=== PATIENT | male | born 1960 | race Hispanic/Latino ===

== ENCOUNTER 2020-09-13 01:10 | Observation (INO) | payer OTHER ==
[2020-09-13 02:35] VITALS: BP 112/66
--- NOTE | 2020-09-13 03:00 | Emergency Department Report ---
ED Altered Mental Status HPI - General Chief Complaint: Altered Mental Status Stated Complaint: AMS Time Seen by Provider: 09/13/20 02:00 Source: EMS Mode of arrival: Stretcher Limitations: Altered Mental Status - History of Present Illness Initial Comments: 60-year-old male, history of seizure disorder, recent pacemaker placement (08/17/20), presents to ED with altered mental status. states patient had a seizure that was witnessed by their 2-year-old grandchild on 09/11/20 at around 8 PM. states ever since his seizure he has been exhibiting bizarre behavior. She states prior to the seizure, patient was his normal self. Not complaining of anything. No recent illness. denies patient having any fever or complaining of any headache, cough, shortness of breath. 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 reports patient has been doing strange things like putting an entire pack of unsmoked cigarettes in the ashtray, and unwrapping an entire roll of dental floss, and eating taco seasoning by the spoonful. states patient was having hallucinations in March of this year. She was told that it was due to sinus bradycardia. States patient has not had hallucinations since March. Patient has not received his COVID-19 vaccine. Patient is quite fidgety on the stretcher. Able to state his name and date of , but is confused and unable to answer any questions. When I asked patient what year it is, patient repeats, "What year is it?" and then does not answer the question. MD Complaint: altered mental status -: days(s) (1) Severity: moderate Consistency of Symptoms: constant Context: unknown - Related Data Allergies Allergy/AdvReac Type Severity Reaction Status Date / Time No Known Allergies Allergy Verified 09/13/20 04:16 ED Review of Systems ROS: Stated complaint: AMS Other details as noted in HPI Comment: Unobtainable due to pts medical conditions ED Past Medical Hx - Past Medical History Previous Medical History?: Yes Hx Seizures: Yes Additional medical history: Pacemaker - Surgical History Past Surgical History?: Yes Hx Pacemaker: Yes ED Physical Exam - General Limitations: Altered Mental Status General appearance: alert, in no apparent distress - Head Head exam: Present: atraumatic, normocephalic - Eye Eye exam: Present: normal appearance, EOMI - ENT ENT exam: Present: mucous membranes dry - Neck Neck exam: Present: normal inspection - Respiratory Respiratory exam: Present: normal lung sounds bilaterally. Absent: respiratory distress - Cardiovascular Cardiovascular Exam: Present: regular rate, normal rhythm - GI/Abdominal GI/Abdominal exam: Present: soft. Absent: distended, tenderness - Extremities Exam Extremities exam: Present: normal inspection - Neurological Exam Neurological exam: Present: alert, altered, CN II-XII intact, abnormal gait (Unsteady), other (follows commands, moves all 4 extremities). Absent: oriented X3 (oriented to self), motor sensory deficit - Psychiatric Psychiatric exam: Present: flat affect - Skin Skin exam: Present: warm, dry, intact, normal color ED Course Vital Signs 09/13/20 09/13/20 02:31 02:32 Temperature 98.2 F Pulse Rate 77 Respiratory 15 Rate Blood Pressure 112/66 [Left] O2 Sat by Pulse 100 100 Oximetry - Lab Data Result diagrams: 09/13/20 02:13 09/13/20 02:13 Lab Results 09/13/20 09/13/20 09/13/20 Range/Units 02:13 02:13 02:13 WBC 13.0 H (4.5-11.0) K/mm3 RBC 4.63 (3.65-5.03) M/mm3 Hgb 12.7 (11.8-15.2) gm/dl Hct 39.7 (35.5-45.6) % MCV 86 (84-94) fl MCH 27 L (28-32) pg MCHC 32 (32-34) % RDW 18.2 H (13.2-15.2) % Plt Count 302 (140-440) K/mm3 Lymph % (Auto) 22.4 (13.4-35.0) % [place] % (Auto) 10.0 H (0.0-7.3) % Eos % (Auto) 4.4 H (0.0-4.3) % Baso % (Auto) 0.7 (0.0-1.8) % Lymph # (Auto) 2.9 (1.2-5.4) K/mm3 [place] # (Auto) 1.3 H (0.0-0.8) K/mm3 Eos # (Auto) 0.6 H (0.0-0.4) K/mm3 Baso # (Auto) 0.1 (0.0-0.1) K/mm3 Seg Neutrophils % 62.5 (40.0-70.0) % Seg Neutrophils # 8.1 H (1.8-7.7) K/mm3 Sodium 141 (137-145) mmol/L Potassium 4.2 (3.6-5.0) mmol/L Chloride 102.6 (98-107) mmol/L Carbon Dioxide 29 (22-30) mmol/L Anion Gap 14 mmol/L BUN 18 (9-20) mg/dL Creatinine 1.0 (0.8-1.3) mg/dL Estimated GFR > 60 ml/min BUN/Creatinine Ratio 18 % Glucose 111 H (75-100) mg/dL Calcium 9.1 (8.4-10.2) mg/dL Total Bilirubin 0.20 (0.1-1.2) mg/dL Direct Bilirubin < 0.2 (0-0.2) mg/dL Indirect Bilirubin 0.0 mg/dL AST 12 (5-40) units/L ALT 12 (7-56) units/L Alkaline Phosphatase 142 H (35-129) units/L Total Creatine Kinase (55-170) units/L Total Protein 6.2 L (6.3-8.2) g/dL Albumin 3.9 (3.9-5) g/dL Albumin/Globulin Ratio 1.7 % Urine Color (Yellow) Urine Turbidity (Clear) Urine pH (5.0-7.0) Ur Specific Fountain (1.003-1.030) Urine Protein (Negative) mg/dL Urine Glucose (UA) (Negative) mg/dL Urine Ketones (Negative) mg/dL Urine Blood (Negative) Urine Nitrite (Negative) Urine Bilirubin (Negative) Urine Urobilinogen (<2.0) mg/dL Ur Leukocyte Esterase (Negative) Urine WBC (Auto) (0.0-6.0) /HPF Urine RBC (Auto) (0.0-6.0) /HPF Urine Bacteria (Auto) (Negative) /HPF Urine Mucus /HPF Urine Opiates Screen Urine Methadone Screen Ur Barbiturates Screen Ur Phencyclidine Scrn Ur Amphetamines Screen U Benzodiazepines Scrn Urine Cocaine Screen U Marijuana (THC) Screen Drugs of Abuse Note Plasma/Serum Alcohol < 0.01 (0-0.07) % 09/13/20 09/13/20 09/13/20 Range/Units 02:49 02:49 03:03 WBC (4.5-11.0) K/mm3 RBC (3.65-5.03) M/mm3 Hgb (11.8-15.2) gm/dl Hct (35.5-45.6) % MCV (84-94) fl MCH (28-32) pg MCHC (32-34) % RDW (13.2-15.2) % Plt Count (140-440) K/mm3 Lymph % (Auto) (13.4-35.0) % [place] % (Auto) (0.0-7.3) % Eos % (Auto) (0.0-4.3) % Baso % (Auto) (0.0-1.8) % Lymph # (Auto) (1.2-5.4) K/mm3 [place] # (Auto) (0.0-0.8) K/mm3 Eos # (Auto) (0.0-0.4) K/mm3 Baso # (Auto) (0.0-0.1) K/mm3 Seg Neutrophils % (40.0-70.0) % Seg Neutrophils # (1.8-7.7) K/mm3 Sodium (137-145) mmol/L Potassium (3.6-5.0) mmol/L Chloride (98-107) mmol/L Carbon Dioxide (22-30) mmol/L Anion Gap mmol/L BUN (9-20) mg/dL Creatinine (0.8-1.3) mg/dL Estimated GFR ml/min BUN/Creatinine Ratio % Glucose (75-100) mg/dL Calcium (8.4-10.2) mg/dL Total Bilirubin (0.1-1.2) mg/dL Direct Bilirubin (0-0.2) mg/dL Indirect Bilirubin mg/dL AST (5-40) units/L ALT (7-56) units/L Alkaline Phosphatase (35-129) units/L Total Creatine Kinase 33 L (55-170) units/L Total Protein (6.3-8.2) g/dL Albumin (3.9-5) g/dL Albumin/Globulin Ratio % Urine Color Yellow (Yellow) Urine Turbidity Clear (Clear) Urine pH 5.0 (5.0-7.0) Ur Specific [place] 1.029 (1.003-1.030) Urine Protein <15 mg/dl (Negative) mg/dL Urine Glucose (UA) Neg (Negative) mg/dL Urine Ketones Neg (Negative) mg/dL Urine Blood Neg (Negative) Urine Nitrite Neg (Negative) Urine Bilirubin Neg (Negative) Urine Urobilinogen < 2.0 (<2.0) mg/dL Ur Leukocyte Esterase Neg (Negative) Urine WBC (Auto) < 1.0 (0.0-6.0) /HPF Urine RBC (Auto) 4.0 (0.0-6.0) /HPF Urine Bacteria (Auto) 1+ (Negative) /HPF Urine Mucus Few /HPF Urine Opiates Screen Presumptive negative Urine Methadone Screen Presumptive negative Ur Barbiturates Screen Presumptive negative Ur Phencyclidine Scrn Presumptive negative Ur Amphetamines Screen Presumptive negative U Benzodiazepines Scrn Presumptive negative Urine Cocaine Screen Presumptive negative U Marijuana (THC) Screen Presumptive negative Drugs of Abuse Note Disclamer Plasma/Serum Alcohol (0-0.07) % - EKG Data EKG shows normal: axis, intervals Rate: normal Interpretation: no acute changes, other (Atrial sensed ventricular paced rhythm) - Radiology Data Radiology results: report reviewed, image reviewed - Medical Decision Making 60-year-old male presents to ED with altered mental status since having a seizure [address] head is unremarkable. Vital signs are normal. Patient has mild elevation in WBCs of 13, however remainder of labs are normal. UA is negative for UTI. Chest x-ray is normal. Patient given Keppra load here in the ED. No seizure activity today or while in the ED. Patient will be admitted to hospitalist, for further management. - Differential Diagnosis Intracranial abnormality, post ictal period, dementia Critical care attestation.: If time is entered above; I have spent that time in minutes in the direct care of this critically ill patient, excluding procedure time. ED Disposition Clinical Impression: Acute encephalopathy, Seizure disorder Disposition: OP ADMIT IP TO THIS HOSP Is pt being admited?: Yes Condition: Stable Time of Disposition: 04:32
[2020-09-13 03:20] LABS: Basophils # (Auto) 0.1 K/mm3 (0.0-0.1); Basophils % (Auto) 0.7 % (0.0-1.8); Eosinophils # (Auto) 0.6 K/mm3 (0.0-0.4); Eosinophils % (Auto) 4.4 % (0.0-4.3); Hematocrit 39.7 % (35.5-45.6); Hemoglobin 12.7 gm/dl (11.8-15.2); Lymphocytes # (Auto) 2.9 K/mm3 (1.2-5.4); Lymphocytes % (Auto) 22.4 % (13.4-35.0); Mean Corpuscular HGB Conc 32 % (32-34); Mean Corpuscular Volume 86 fl (84-94); Monocytes # (Auto) 1.3 K/mm3 (0.0-0.8); Platelet Count 302 K/mm3 (140-440); Red Blood Count 4.63 M/mm3 (3.65-5.03); Red Cell Distribution Width 18.2 % (13.2-15.2)
[2020-09-13 03:32] LABS: Amphetamine Screen,Urine PRESUMPTIVE NEGATIVE; Benzodiazepines Screen,Urine PRESUMPTIVE NEGATIVE; Cannabinoid Screen,Urine PRESUMPTIVE NEGATIVE; Cocaine Screen,Urine PRESUMPTIVE NEGATIVE; Methadone Screen,Urine PRESUMPTIVE NEGATIVE; Opiate Screen,Urine PRESUMPTIVE NEGATIVE
[2020-09-13 03:38] LABS: Alanine Aminotransferase 12 units/L (7-56); Albumin 3.9 g/dL (3.9-5); BUN/Creatinine Ratio 18; Blood Urea Nitrogen 18 mg/dL (9-20); Calcium 9.1 mg/dL (8.4-10.2); Hemolysis Index 6
[2020-09-13 03:51] LABS: Bilirubin,Direct < 0.2 mg/dL (0-0.2)
--- NOTE | 2020-09-13 03:54 | XRay Report ---
CHEST 1 VIEW 09/13/2020 2:24 AM INDICATION / CLINICAL INFORMATION: AMS. COMPARISON: None available. FINDINGS: SUPPORT DEVICES: None. HEART / MEDIASTINUM: Heart is normal size. Left-sided dual-lead cardiac pacemaker is present. LUNGS / PLEURA: No significant pulmonary or pleural abnormality. No pneumothorax. ADDITIONAL FINDINGS: No significant additional findings. IMPRESSION: 1. No acute findings. Signer Name: Aixa Sanchez MD Signed: 09/13/2020 3:49 AM Workstation Name: [email or web address]
[2020-09-13 03:57] LABS: Bacteria,Urine 1+ /HPF (Negative); Bilirubin,Urine NEG (Negative); Blood,Urine NEG (Negative); Color,Urine Yellow (Yellow); Mucus,Urine FEW /HPF; Protein,Urine <15 mg/dL mg/dL (Negative); Urobilinogen,Urine < 2.0 mg/dL (<2.0); WBC,Urine < 1.0 /HPF (0.0-6.0)
--- NOTE | 2020-09-13 04:05 | Cat Scan Report ---
CT HEAD WITHOUT CONTRAST INDICATION / CLINICAL INFORMATION: AMS following seizure 1 day ago. TECHNIQUE: All CT scans at this location are performed using CT dose reduction for ALARA by means of automated exposure control. COMPARISON: None available. FINDINGS: Study is degraded by moderate patient motion artifact despite repeated attempts. HEMORRHAGE: None. EXTRA-AXIAL SPACES: Normal in size and morphology for the patient's age. VENTRICULAR SYSTEM: Normal in size and morphology for the patient's age. CEREBRAL PARENCHYMA: No significant abnormality. No acute territorial infarct. MIDLINE SHIFT / HERNIATION: None. CEREBELLUM / BRAINSTEM: No significant abnormality. ORBITS: Normal as visualized. SOFT TISSUES: No significant abnormality. SKULL: No significant abnormality. PARANASAL SINUSES / MASTOID AIR CELLS: Normal as visualized. ADDITIONAL FINDINGS: None. IMPRESSION: 1. No acute abnormality on this study limited by patient motion artifact. Signer Name: Aixa Sanchez MD Signed: 09/13/2020 4:01 AM Workstation Name: [id number]
[2020-09-13] MEDS ORDERED: SODIUM CHLORIDE 0.9% 1000 ML 1,000 ML IV ONE (04:13)
[2020-09-13] MEDS ORDERED: levETIRAcetam 1000 MG/NS 0.75% 1,000 MG/100 ML BAG IV ONE (04:13)
--- NOTE | 2020-09-13 05:14 | History and Physical Report ---
History of Present Illness Date of examination: 09/13/20 Date of admission: 09/13/20 04:32 Chief complaint: Altered mental status History of present illness: This is a 60-year-old male who was brought to the ED by his . Per ED note, patients brought patient and she reported that patient has been confused and disoriented with decreased behavior after he had a seizure on 09/11/2020. Patient has a history of seizure disorder and presently had pacemaker placement 08/17/20. On assessment, patient is alert oriented but confused, was unable to get any pertinent information from patient due to confusion. When asked why did he come to the Hospital, patient was not able to explain where he is and why he was brought to the hospital. Checks x-ray and CT of the head are negative for acute finding. Will order MRI of the brain. I reviewed patient medical record and lab values, patient has mild elevation of WBC with no evidence of sepsis. Blood culture ordered. Inpatient psych and neurologist consulted. Past History Past Medical History: seizures, other (Altered mental status) Past Surgical History: Other (Placement of pacemaker) Social history: no significant social history Medications and Allergies Allergies Allergy/AdvReac Type Severity Reaction Status Date / Time No Known Allergies Allergy Verified 09/13/20 04:16 Active Meds: Active Medications Sodium Chloride (Nacl 0.9% 1000 Ml) 1,000 mls @ 999 mls/hr IV BOLUS ONE Stop: 09/13/20 05:13 Review of Systems Constitutional: other (Confused) Ears, nose, mouth and throat: no epistaxis, no bleeding gums Gastrointestinal: no BRBPR, no melena Rectal: no hemorrhoids, no discharge Musculoskeletal: other (Denies any discomfort) Integumentary: no rash, no pruritis Neurological: confusion (Patient is very confused patient is viable and unable to answer recent appropriately. When asked how are you doing he said I am fine but appears very altered), sensory deficit Psychiatric: memory loss (The patient ED record patient has been altered after he had a seizure), disorientation, confusion Hematologic/Lymphatic: no easy bruising, no easy bleeding Allergic/Immunologic: no urticaria, no allergic rhinitis Exam - Constitutional Vitals: Temp Pulse Resp BP Pulse Ox 98.2 F 77 15 112/66 100 09/13/20 02:31 09/13/20 02:31 09/13/20 02:31 09/13/20 02:31 09/13/20 02:32 General appearance: Present: no acute distress, well-nourished - EENT Eyes: Present: PERRL ENT: hearing intact, clear oral mucosa - Neck Neck: Present: supple, normal ROM - Respiratory Respiratory effort: normal Respiratory: bilateral: CTA - Cardiovascular Heart Sounds: Present: S1 & S2. Absent: rub, click - Extremities Extremities: pulses symmetrical, No edema Peripheral Pulses: within normal limits - Abdominal General gastrointestinal: Present: soft, non-tender, non-distended, normal bowel sounds Male genitourinary: Present: normal - Integumentary Integumentary: Present: clear, warm, dry - Musculoskeletal Musculoskeletal: gait normal, strength equal bilaterally - Psychiatric Psychiatric: memory intact, cooperative, other (Patient is confused following his seizure) - Neurologic Neurologic: CNII-XII intact, moves all extremities - Allied Health Allied health notes reviewed: nursing Results - Labs CBC & Chem 7: 09/13/20 02:13 09/13/20 02:13 Labs: Abnormal lab results 09/13/20 09/13/20 09/13/20 Range/Units 02:13 02:13 03:03 WBC 13.0 H (4.5-11.0) K/mm3 MCH 27 L (28-32) pg RDW 18.2 H (13.2-15.2) % [place] % (Auto) 10.0 H (0.0-7.3) % Eos % (Auto) 4.4 H (0.0-4.3) % [place] # (Auto) 1.3 H (0.0-0.8) K/mm3 Eos # (Auto) 0.6 H (0.0-0.4) K/mm3 Seg Neutrophils # 8.1 H (1.8-7.7) K/mm3 Glucose 111 H (75-100) mg/dL Alkaline Phosphatase 142 H (35-129) units/L Total Creatine Kinase 33 L (55-170) units/L Total Protein 6.2 L (6.3-8.2) g/dL Assessment and Plan - Patient Problems (1) Acute encephalopathy Current Visit: Yes Status: Acute Plan to address problem: Questionable causeinfection CT of the head no acute finding. Chest x-ray also done results within normal limits Safety and fall precaution at all time MRI of the brain Neuro consultfollow-up with recommendation (2) Seizure disorder Current Visit: Yes Status: Acute Plan to address problem: Seizure and safety precaution Patient recently had a seizuresince then patient has altered mental status We will consult inpatient psych start patient on home antiseizure meds (3) Leukocytosis (leucocytosis) Current Visit: Yes Status: Acute Plan to address problem: Unknown causeinfection/reactive Patient has no evidence sign of sepsis Monitor WBC and blood culture Urinalysis showed no sign of UTI (4) DVT prophylaxis Current Visit: Yes Status: Acute Plan to address problem: Lovenox subcutaneous
[2020-09-13] MEDS ORDERED: SENNOSIDES 8.6 MG TAB PO PRN (05:25)
[2020-09-13] MEDS ORDERED: NALOXONE 0.4 MG/1 ML INJ IV PRN (05:25)
[2020-09-13] MEDS ORDERED: ONDANSETRON 4 MG/2 ML INJ IV PRN (05:25)
[2020-09-13] MEDS ORDERED: MAGNESIUM HYDROXIDE (MOM) ORAL LIQD UDC PO PRN (05:25)
[2020-09-13] MEDS ORDERED: HYDROcodone/ACETAMINOPHEN 5-325 MG TAB PO PRN (05:25)
[2020-09-13] MEDS ORDERED: ACETAMINOPHEN 325 MG TAB PO PRN (05:25)
[2020-09-13] MEDS ORDERED: IBUPROFEN 600 MG TAB PO PRN (05:25)
[2020-09-13] MEDS ORDERED: ALUM-MAG HYDROXIDE-SIMETHICONE 200-200-20MG/5ML ORAL LIQD 30 ML PO PRN (05:25)
[2020-09-13] MEDS ORDERED: ALBUTEROL 2.5 MG/3 ML NEBU IH PRN (05:25)
[2020-09-13] MEDS ORDERED: SODIUM CHLORIDE 0.9% 1000 ML 1,000 ML IV SCH (05:30)
[2020-09-13] MEDS ORDERED: LORazepam 2 MG/ML VIAL IV PRN (05:48)
[2020-09-13] MEDS ORDERED: FAMOTIDINE 20 MG/2 ML INJ IV SCH (10:00)
[2020-09-13] MEDS ORDERED: ENOXAPARIN 40 MG/0.4 ML INJ SUB-Q SCH (10:00)
--- NOTE | 2020-09-13 10:37 | Consultation ---
History of Present Illness - Reason for Consult Consult date: 09/13/20 Reason for consult: MHE - History of Present Psychiatric Illness Per ER Note: 60-year-old male, history of seizure disorder, recent pacemaker placement (08/17/20), presents to ED with altered mental status. states patient had a seizure that was witnessed by their 2-year-old grandchild on 09/11/20 at around 8 PM. states ever since his seizure he has been exhibiting bizarre behavior. She states prior to the seizure, patient was his normal self. Not complaining of anything. No recent illness. denies patient having any fever or complaining of any headache, cough, shortness of breath. 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 reports patient has been doing strange things like putting an entire pack of unsmoked cigarettes in the ashtray, and unwrapping an entire roll of dental floss, and eating taco seasoning by the spoonful. states patient was having hallucinations in Mar ruary of this year. She was told that it was due to sinus bradycardia. States patient has not had hallucinations since March. Patient has not received his COVID-19 vaccine. Patient is quite fidgety on the stretcher. Able to state his name and date of , but is confused and unable to answer any questions. When I asked patient what year it is, patient repeats, "What year is it?" and then does not answer the question. Omid Red is 60y/o male patient whom I evaluated today. During my evaluation the patient is calm and cooperative. He is quiet and made poor eye contact. He is a/o x 2. The patient was able to tell me he's been to his for 13years. He says he has three children. The patient says overall he is pleased with his life when asked. He says he doesn't work. He says he was brought here by his for chest pain, although it a different reason is documented. He denies any SI/HI or any past attempt. When asking the patient was there anything he wanted to talk about he states "I'm talking to you." He also denies being on any psych medications. The patient denies any illicit drug use. He also denies any hallucinations of any kind. I spoke to the patient's spouse, Irena Red to obtain insight into the patient's history and reason for visit. She confirms that she and the patient have been around that time. She states the patient does have three biological children, plus one extra with her daughter. She says the patient has seen a psychiatrist "many years ago" but she could not recall what it actually was. She says the patient has never had a suicide attempt as far as she knew or on any psychiatric medications. She also denies any history of illicit drug use or chronic ETOH use. Mrs. Red says the patient is an overall funny man, and easy to get along with. She says most of his behavior started after he had a seizure. She is concerned that something medically is going on with the patient and asked if he had a head CT. 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 Access to guns/weapons: Denies Education: History of Abuse: none reported Legal History: none reported REVIEW OF SYSTEMS Constitutional: Negative for weight loss ENT: Negative for stridor Respiratory: Negative for cough or hemoptysis All other systems reviewed and are negative MENTAL STATUS EXAMINATION General Appearance and Behavior: Age appropriate, good hygiene, wearing appropriate clothes, awake, withdrawn, poor eye contact Cooperation: Participating/engaged Psychomotor Behavior: Tremors Mood: okay Affect and affective range: congruent with mood Thought Process: circumstantial Thought Content: None Speech: Normal volume, Regular rate and rhythm, Suicidal Ideation: Denies Homicidal Ideation: Denies Hallucinations: Denies Delusions: None elicited Impulse Control: impaired Insight and Judgment: limited insight and judgment, Memory: Limited Attention: Limited Orientation: Alert, oriented x 2 Assessment and Plan (1)Altered Mental Status Current Visit: Yes Status: Acute Treatment Plan It appears that the patient could possibly have an underlying medical condition. Will not start any medications until after CT or MRI of brain are done and resulted to r/o underlying conditions of the brain. Sitter: Defer to primary Medical: Per primary Disposition: Do not recommend acute psychiatric inpatient treatment at this time. If the patient is admitted for medical reasons will follow him on the floor for continued psych assessment. Thanks. Case staffed with Dr. Coats. Medications and Allergies Allergies Allergy/AdvReac Type Severity Reaction Status Date / Time No Known Allergies Allergy Verified 09/13/20 04:16 Active Meds: Active Medications Acetaminophen (Acetaminophen 325 Mg Tab) 650 mg PO Q4H PRN PRN Reason: Pain MILD(1-3)/Fever >100.5/BELLE Hydrocodone Bitart/Acetaminophen (Hydrocodone/Acetaminophen 5-325 Mg Tab) 2 each PO Q6H PRN PRN Reason: Pain, Moderate (4-6) Al Hydrox/Mg Hydrox/Simethicone (Alum-Mag Hydroxide-Simethicone [phone]/5ml Oral Liqd 30 Ml) 30 ml PO Q4H PRN PRN Reason: Indigestion Albuterol (Albuterol 2.5 Mg/3 Ml Nebu) 2.5 mg IH Q4HRT PRN PRN Reason: Shortness Of Breath Enoxaparin Sodium (Enoxaparin 40 Mg/0.4 Ml Inj) 40 mg SUB-Q QDAY [facility] Last Admin: 09/13/20 10:29 Dose: Not Given Documented by: Famotidine (Famotidine 20 Mg/2 Ml Inj) 20 mg IV BID [facility] Last Admin: 09/13/20 10:29 Dose: Not Given Documented by: Levetiracetam 500 mg/ Dextrose 105 mls @ 400 mls/hr IV Q12H JAUN Sodium Chloride (Nacl 0.9% 1000 Ml) 1,000 mls @ 75 mls/hr IV DIRECT [facility] Ibuprofen (Ibuprofen 600 Mg Tab) 600 mg PO Q6H PRN PRN Reason: Pain, Mild (1-3) Lorazepam (Lorazepam 2 Mg/Ml Vial) 2 mg IV Q1H PRN PRN Reason: Seizures Magnesium Hydroxide (Magnesium Hydroxide (Mom) Oral Liqd Udc) 30 ml PO Q4H PRN PRN Reason: Constipation Naloxone HCl (Naloxone 0.4 Mg/1 Ml Inj) 0.1 mg IV Q2MIN PRN PRN Reason: Res Rate </= 8 or 02 SAT < 92% Ondansetron HCl (Ondansetron 4 Mg/2 Ml Inj) 4 mg IV Q8H PRN PRN Reason: Nausea And Vomiting Senna (Sennosides 8.6 Mg Tab) 8.6 mg PO Q12HR PRN PRN Reason: Constipation Sodium Chloride (Sodium Chloride 0.9% 10 Ml Flush Syringe) 10 ml IV BID JAUN Last Admin: 09/13/20 10:29 Dose: Not Given Documented by: Sodium Chloride (Sodium Chloride 0.9% 10 Ml Flush Syringe) 10 ml IV PRN PRN PRN Reason: LINE FLUSH Mental Status Exam - Vital signs Last Vital Signs Temp 98.2 F 09/13/20 02:31 Pulse 77 09/13/20 02:31 Resp 15 09/13/20 02:31 BP 112/66 09/13/20 02:31 Pulse Ox 100 09/13/20 02:32 Results Result Diagrams: 09/13/20 02:13 09/13/20 02:13 Abnormal lab results 09/13/20 09/13/20 09/13/20 Range/Units 02:13 02:13 03:03 WBC 13.0 H (4.5-11.0) K/mm3 MCH 27 L (28-32) pg RDW 18.2 H (13.2-15.2) % [place] % (Auto) 10.0 H (0.0-7.3) % Eos % (Auto) 4.4 H (0.0-4.3) % [place] # (Auto) 1.3 H (0.0-0.8) K/mm3 Eos # (Auto) 0.6 H (0.0-0.4) K/mm3 Seg Neutrophils # 8.1 H (1.8-7.7) K/mm3 Glucose 111 H (75-100) mg/dL Alkaline Phosphatase 142 H (35-129) units/L Total Creatine Kinase 33 L (55-170) units/L Total Protein 6.2 L (6.3-8.2) g/dL All other labs normal.
--- NOTE | 2020-09-13 11:34 | Event Note ---
Date: 09/13/20 Patient with altered mental status. CT head neg. MRI Brain ordered. Spoke with spouse. She tells me he had seizures on 2 days ago. Was on Keppra at home for seizures. I have seen and examined him. Has pacemeker done by Lanre Kern, [facility]
[2020-09-13] MEDS ORDERED: HALOPERIDOL LACTATE 5 MG/1 ML INJ IM PRN (15:11)
[2020-09-13] MEDS ORDERED: levETIRAcetam 1,000 MG in DEXTROSE 5% IN WATER 100 ML IV SCH (17:00)
[2020-09-13] MEDS ORDERED: levETIRAcetam 500 MG in DEXTROSE 5% IN WATER 100 ML IV SCH (18:00)
--- NOTE | 2020-09-14 09:41 | Discharge Summary ---
Providers - Providers Date of Admission: 09/13/20 04:32 Date of discharge: 09/13/20 Attending physician: CELSO AMBROSIO 09/13/20 Consult to Case Management [CONS] Routine Services Needed at Discharge: Maid Housekeeper Notified:: foster care case manager 09/13/20 05:23 psychiatry consult [Consult to Mental Health] [CONS] Stat Reason For Exam: Altered mental status 09/13/20 05:33 Consult to Physician [CONS] Routine Comment: Consulting Provider: DILLON RODRIGUEZ Physician Instructions: Reason For Exam: Altered mental status Primary care physician: TAFE LECTURER Hospitalization Condition: Fair Hospital course: This is a 60-year-old male who was brought to the ED by his . Per ED note, patients brought patient and she reported that patient has been confused and disoriented with decreased behavior after he had a seizure on 09/11/2020. Patient has a history of seizure disorder and presently had pacemaker placement 08/17/20. On assessment, patient is alert oriented but confused, was unable to get any pertinent information from patient due to confusion. When asked why did he come to the Hospital, patient was not able to explain where he is and why he was brought to the hospital. Checks x-ray and CT of the head are negative for acute finding. Inpatient psych and neurologist consulted. He was admitted, seen by Psych who stated he did not need involuntary hold. Neurologist was consulted for seizures. However patient signed out against medical advice and left hospital on 09/13/20. Disposition: 07 LEFT AGAINST MEDICAL ADVICE Final Discharge Diagnosis (Prints w/discharge instructions): 1.Seizure disorder. 2.Acute encephalopathy - Discharge Diagnoses (1) Acute encephalopathy Status: Acute (2) Leukocytosis (leucocytosis) Status: Acute (3) Seizure disorder Status: Acute Core Measure Documentation - Palliative Care Palliative Care/ Comfort Measures: Not Applicable - Core Measures Any of the following diagnoses?: none Exam - Constitutional Vitals: Temp Pulse Resp BP Pulse Ox 98.2 F 77 19 112/66 97 09/13/20 02:31 09/13/20 02:31 09/13/20 11:49 09/13/20 02:09/13/20 11:49 Plan Follow up with: PRIMARY MD EVIE [Primary Care Provider] - 3-5 Days Forms: AMA Form
--- NOTE | 2020-09-15 10:37 | Electrocardiograph Report ---
[facility] Test Date: 2020-09-13 Test Time: 05:03:37 Pat Name: CRIS GUZMAN Department: Room: A470 1 Gender: M Rn Case Management: JOSE : 1960 Requested By: MALENA REYNOLDS Order Number: [id number] Reading MD: Sergio Benito Measurements Intervals [place] Rate: 75 P: 71 MI: 179 QRS: 259 QRSD: 128 T: 75 QT: 442 QTc: 493 Interpretive Statements Atrial-sensed ventricular-paced rhythm No previous ECG available for comparison Electronically Signed On 09-15-2020 10:37:04 EDT by Sergio Benito
== END 2020-09-13 15:00 | disposition left against medical advice (07) ==
LOC: ED 01:10 → 4A 04:32
PROVIDERS: ADMIT Hospitalist; ATTEND Internal Medicine
DX: G93.40 Encephalopathy, unspecified (principal); G40.909 Epilepsy, unspecified, not intractable, without status epilepticus; D72.829 Elevated white blood cell count, unspecified; R41.82 Altered mental status, unspecified; Z79.899 Other long term (current) drug therapy
CPT/HCPCS: 36415; 70450; 71045; 80048; 80076; 80307; 81001; 82550; 85025; 93005; 96365; 99285; G0378; J1953; J7030; 80320; G0480

== ENCOUNTER 2021-09-09 15:45 | Inpatient (IN) | payer SELFPAY ==
[2021-09-09] MEDS: LORazepam 2 MG/ML VIAL IV NR ×2 (16:30→18:56)
--- NOTE | 2021-09-09 16:39 | Emergency Department Report ---
ED General Adult HPI - General Stated complaint: AMS Time Seen by Provider: 09/09/21 16:17 - History of Present Illness Initial comments: Patient presents to the emergency department via EMS for altered mental status. The patient's states that he has been altered for the last 48 hours per EMS. Patient is not able to add to the history. The patient's was contacted and she states that the patient also hit his head today. She denies any alcohol or drug use -: Sudden Severity scale (0 -10): 0 Consistency: constant Improves with: none Worsens with: none Treatments Prior to Arrival: none - Related Data Allergies Allergy/AdvReac Type Severity Reaction Status Date / Time No Known Allergies Allergy Verified 09/13/20 04:16 ED Review of Systems ROS: Stated complaint: AMS Other details as noted in HPI Comment: Unobtainable due to pts medical conditions ED Past Medical Hx - Past Medical History Hx Seizures: Yes Additional medical history: Pacemaker - Surgical History Hx Pacemaker: Yes - Social History Smoking Status: Unknown if ever smoked Substance Use Type: None ED Physical Exam - General General appearance: other (Altered; disoriented; combative but easily redirected) - Head Head exam: Present: atraumatic, normocephalic - Eye Eye exam: Present: normal appearance - ENT ENT exam: Present: mucous membranes dry - Neck Neck exam: Present: normal inspection - Respiratory Respiratory exam: Present: normal lung sounds bilaterally. Absent: respiratory distress - Cardiovascular Cardiovascular Exam: Present: normal rhythm, tachycardia. Absent: systolic murmur, diastolic murmur, rubs, gallop - GI/Abdominal GI/Abdominal exam: Present: soft, normal bowel sounds. Absent: distended, tenderness - Rectal Rectal exam: Present: deferred - Extremities Exam Extremities exam: Present: normal inspection - Back Exam Back exam: Present: normal inspection - Neurological Exam Neurological exam: Present: altered, other (Not able to complete neurological exam due to the patient's condition) - Psychiatric Psychiatric exam: Present: other (Not able to complete a psychiatric exam due to the patient's condition) - Skin Skin exam: Present: warm, dry, intact, normal color. Absent: rash ED Course Vital Signs 09/09/21 09/09/21 09/09/21 16:09 16:16 16:30 Temperature Pulse Rate 112 H 115 H 113 H Respiratory 19 20 24 Rate Blood Pressure 153/71 Blood Pressure [Left] O2 Sat by Pulse 96 97 97 Oximetry 09/09/21 09/09/21 09/09/21 17:07 17:20 17:30 Temperature Pulse Rate 104 H 111 H Respiratory 25 H 33 H Rate Blood Pressure 164/112 164/112 163/138 Blood Pressure [Left] O2 Sat by Pulse 97 98 Oximetry 09/09/21 09/09/21 09/09/21 17:46 18:00 18:16 Temperature Pulse Rate 112 H 114 H 127 H Respiratory 19 17 25 H Rate Blood Pressure 153/71 170/86 170/86 Blood Pressure [Left] O2 Sat by Pulse 100 99 97 Oximetry 09/09/21 09/09/21 09/09/21 18:30 18:45 19:45 Temperature 98.5 F Pulse Rate 121 H 115 H 116 H Respiratory 24 20 24 Rate Blood Pressure 173/80 173/80 Blood Pressure 208/109 [Left] O2 Sat by Pulse 83 L 98 100 Oximetry 09/09/21 21:30 Temperature Pulse Rate 112 H Respiratory 17 Rate Blood Pressure Blood Pressure [Left] O2 Sat by Pulse Oximetry - Lumbar Puncture Consent Obtained: written consent Time Out Performed: Yes Indication for Procedure: change in mental status Patient Position: left lateral decubitus Skin Prep: Povidone-Iodine 1% Local Anesthetic Used: Lidocaine 2% Spinal Needle Gauge: 20G Spinal Needle Length: 1.5in Interspace Used: L3-L4 Fluid Initially Obtained: clear Complications: none Patient Tolerated Procedure: well ED Medical Decision Making - Lab Data Result diagrams: 09/09/21 16:53 09/09/21 16:53 Lab Results 09/09/21 09/09/21 09/09/21 Range/Units 16:13 16:53 16:53 WBC 15.3 H (4.5-11.0) K/mm3 RBC 5.23 H (3.65-5.03) M/mm3 Hgb 14.8 (11.8-15.2) gm/dl Hct 45.1 (35.5-45.6) % MCV 86 (84-94) fl MCH 28 (28-32) pg MCHC 33 (32-34) % RDW 14.9 (13.2-15.2) % Plt Count 200 (140-440) K/mm3 Add Manual Diff Complete Total Counted 100 Seg Neuts % (Manual) 77.0 H (40.0-70.0) % Band Neutrophils % 0 % Lymphocytes % (Manual) 10.0 L (13.4-35.0) % Reactive Lymphs % (Man) 0 % Monocytes % (Manual) 7.0 (0.0-7.3) % Eosinophils % (Manual) 3.0 (0.0-4.3) % Basophils % (Manual) 3.0 H (0.0-1.8) % Metamyelocytes % 0 % Myelocytes % 0 % Promyelocytes % 0 % Blast Cells % 0 % Nucleated RBC % Not Reportable Seg Neutrophils # Man 11.8 H (1.8-7.7) K/mm3 Band Neutrophils # 0.0 K/mm3 Lymphocytes # (Manual) 1.5 (1.2-5.4) K/mm3 Abs React Lymphs (Man) 0.0 K/mm3 Monocytes # (Manual) 1.1 H (0.0-0.8) K/mm3 Eosinophils # (Manual) 0.5 H (0.0-0.4) K/mm3 Basophils # (Manual) 0.5 H (0.0-0.1) K/mm3 Metamyelocytes # 0.0 K/mm3 Myelocytes # 0.0 K/mm3 Promyelocytes # 0.0 K/mm3 Blast Cells # 0.0 K/mm3 WBC Morphology Not Reportable Hypersegmented Neuts Not Reportable Hyposegmented Neuts Not Reportable Hypogranular Neuts Not Reportable Smudge Cells Not Reportable Toxic Granulation Not Reportable Toxic Vacuolation Not Reportable Dohle Bodies Not Reportable Pelger-Huet Anomaly Not Reportable [place] Rods Not Reportable Platelet Estimate Consistent w auto Clumped Platelets Not Reportable Plt Clumps, EDTA Not Reportable Large Platelets Not Reportable Giant Platelets Not Reportable Platelet Satelliting Not Reportable Plt Morphology Comment Not Reportable RBC Morphology Not Reportable Dimorphic RBCs Not Reportable Polychromasia Not Reportable Hypochromasia Not Reportable Poikilocytosis Not Reportable Anisocytosis Not Reportable Microcytosis Not Reportable Macrocytosis Not Reportable Spherocytes Not Reportable Pappenheimer Bodies Not Reportable Sickle Cells Not Reportable Target Cells Not Reportable Tear Drop Cells Not Reportable Ovalocytes Not Reportable Helmet Cells Not Reportable Kraft-Soudan Bodies Not Reportable [place] Rings Not Reportable Dav[place] Cells Not Reportable Bite Cells Not Reportable Crenated Cell Not Reportable Elliptocytes Not Reportable Acanthocytes (Spur) Not Reportable Rouleaux Not Reportable Hemoglobin C Crystals Not Reportable Schistocytes Not Reportable Malaria parasites Not Reportable Xavi Bodies Not Reportable Hem Pathologist Commnt No PT (12.2-14.9) Sec. INR (0.87-1.13) APTT (24.2-36.6) Sec. ABG pH (7.350-7.450) pH Units ABG pCO2 mm Hg ABG pO2 (80.0-90.0) mm Hg ABG HCO3 (20.0-26.0) mmol/L ABG O2 Saturation (95.0-99.0) % ABG O2 Content (0.0-44) ABG Base Excess (-2.0-3.0) mmol/L ABG Hemoglobin (14.0-18.0) gm/dl ABG Carboxyhemoglobin (0.0-5.0) % ABG Methemoglobin (0.0-1.5) % Oxyhemoglobin (95.0-99.0) % FiO2 % Sodium (137-145) mmol/L Potassium (3.6-5.0) mmol/L Chloride (98-107) mmol/L Carbon Dioxide (22-30) mmol/L Anion Gap mmol/L BUN (9-20) mg/dL Creatinine (0.8-1.3) mg/dL Estimated GFR ml/min BUN/Creatinine Ratio % Glucose (75-100) mg/dL POC Glucose 409 H (70-105) mg/dL Lactic Acid 2.80 H* (0.7-2.0) mmol/L Calcium (8.4-10.2) mg/dL Total Bilirubin (0.1-1.2) mg/dL AST (5-40) units/L ALT (7-56) units/L Alkaline Phosphatase (35-129) units/L Ammonia (25-60) umol/L Total Creatine Kinase (55-170) units/L Troponin T (0.00-0.029) ng/mL Total Protein (6.3-8.2) g/dL Albumin (3.9-5) g/dL Albumin/Globulin Ratio % TSH (0.270-4.200) mlU/mL Urine Color (Yellow) Urine Turbidity (Clear) Urine pH (5.0-7.0) Ur Specific [place] (1.003-1.030) Urine Protein (Negative) mg/dL Urine Glucose (UA) (Negative) mg/dL Urine Ketones (Negative) mg/dL Urine Blood (Negative) Urine Nitrite (Negative) Urine Bilirubin (Negative) Urine Urobilinogen (<2.0) mg/dL Ur Leukocyte Esterase (Negative) Urine WBC (Auto) (0.0-6.0) /HPF Urine RBC (Auto) (0.0-6.0) /HPF Urine Mucus /HPF CSF Glucose mg/dL CSF Total Protein mg/dL Urine Opiates Screen Urine Methadone Screen Ur Barbiturates Screen Ur Phencyclidine Scrn Ur Amphetamines Screen U Benzodiazepines Scrn Urine Cocaine Screen U Marijuana (THC) Screen Drugs of Abuse Note Plasma/Serum Alcohol (0-0.07) % 09/09/21 09/09/21 09/09/21 Range/Units 16:53 16:53 16:53 WBC (4.5-11.0) K/mm3 RBC (3.65-5.03) M/mm3 Hgb (11.8-15.2) gm/dl Hct (35.5-45.6) % MCV (84-94) fl MCH (28-32) pg MCHC (32-34) % RDW (13.2-15.2) % Plt Count (140-440) K/mm3 Add Manual Diff Total Counted Seg Neuts % (Manual) (40.0-70.0) % Band Neutrophils % % Lymphocytes % (Manual) (13.4-35.0) % Reactive Lymphs % (Man) % Monocytes % (Manual) (0.0-7.3) % Eosinophils % (Manual) (0.0-4.3) % Basophils % (Manual) (0.0-1.8) % Metamyelocytes % % Myelocytes % % Promyelocytes % % Blast Cells % % Nucleated RBC % Seg Neutrophils # Man (1.8-7.7) K/mm3 Band Neutrophils # K/mm3 Lymphocytes # (Manual) (1.2-5.4) K/mm3 Abs React Lymphs (Man) K/mm3 Monocytes # (Manual) (0.0-0.8) K/mm3 Eosinophils # (Manual) (0.0-0.4) K/mm3 Basophils # (Manual) (0.0-0.1) K/mm3 Metamyelocytes # K/mm3 Myelocytes # K/mm3 Promyelocytes # K/mm3 Blast Cells # K/mm3 WBC Morphology Hypersegmented Neuts Hyposegmented Neuts Hypogranular Neuts Smudge Cells Toxic Granulation Toxic Vacuolation Dohle Bodies Pelger-Huet Anomaly [place] Rods Platelet Estimate Clumped Platelets Plt Clumps, EDTA Large Platelets Giant Platelets Platelet Satelliting Plt Morphology Comment RBC Morphology Dimorphic RBCs Polychromasia Hypochromasia Poikilocytosis Anisocytosis Microcytosis Macrocytosis Spherocytes Pappenheimer Bodies Sickle Cells Target Cells Tear Drop Cells Ovalocytes Helmet Cells Kraft-Soudan Bodies [place] Rings [place] Cells Bite Cells Crenated Cell Elliptocytes Acanthocytes (Spur) Rouleaux Hemoglobin C Crystals Schistocytes Malaria parasites Xavi Bodies Hem Pathologist Commnt PT 12.8 (12.2-14.9) Sec. INR 0.87 (0.87-1.13) APTT 30.3 (24.2-36.6) Sec. ABG pH (7.350-7.450) pH Units ABG pCO2 mm Hg ABG pO2 (80.0-90.0) mm Hg ABG HCO3 (20.0-26.0) mmol/L ABG O2 Saturation (95.0-99.0) % ABG O2 Content (0.0-44) ABG Base Excess (-2.0-3.0) mmol/L ABG Hemoglobin (14.0-18.0) gm/dl ABG Carboxyhemoglobin (0.0-5.0) % ABG Methemoglobin (0.0-1.5) % Oxyhemoglobin (95.0-99.0) % FiO2 % Sodium 133 L (137-145) mmol/L Potassium 4.6 (3.6-5.0) mmol/L Chloride 97.2 L (98-107) mmol/L Carbon Dioxide 22 (22-30) mmol/L Anion Gap 18 mmol/L BUN 16 (9-20) mg/dL Creatinine 1.0 (0.8-1.3) mg/dL Estimated GFR > 60 ml/min BUN/Creatinine Ratio 16 % Glucose 423 H (75-100) mg/dL POC Glucose (70-105) mg/dL Lactic Acid (0.7-2.0) mmol/L Calcium 9.4 (8.4-10.2) mg/dL Total Bilirubin 0.20 (0.1-1.2) mg/dL AST 20 (5-40) units/L ALT 16 (7-56) units/L Alkaline Phosphatase 129 (35-129) units/L Ammonia 42.0 (25-60) umol/L Total Creatine Kinase 71 (55-170) units/L Troponin T < 0.010 (0.00-0.029) ng/mL Total Protein 7.1 (6.3-8.2) g/dL Albumin 4.2 (3.9-5) g/dL Albumin/Globulin Ratio 1.4 % TSH (0.270-4.200) mlU/mL Urine Color (Yellow) Urine Turbidity (Clear) Urine pH (5.0-7.0) Ur Specific [place] (1.003-1.030) Urine Protein (Negative) mg/dL Urine Glucose (UA) (Negative) mg/dL Urine Ketones (Negative) mg/dL Urine Blood (Negative) Urine Nitrite (Negative) Urine Bilirubin (Negative) Urine Urobilinogen (<2.0) mg/dL Ur Leukocyte Esterase (Negative) Urine WBC (Auto) (0.0-6.0) /HPF Urine RBC (Auto) (0.0-6.0) /HPF Urine Mucus /HPF CSF Glucose mg/dL CSF Total Protein mg/dL Urine Opiates Screen Urine Methadone Screen Ur Barbiturates Screen Ur Phencyclidine Scrn Ur Amphetamines Screen U Benzodiazepines Scrn Urine Cocaine Screen U Marijuana (THC) Screen Drugs of Abuse Note Plasma/Serum Alcohol (0-0.07) % 09/09/21 09/09/21 09/09/21 Range/Units 16:53 16:53 17:39 WBC (4.5-11.0) K/mm3 RBC (3.65-5.03) M/mm3 Hgb (11.8-15.2) gm/dl Hct (35.5-45.6) % MCV (84-94) fl MCH (28-32) pg MCHC (32-34) % RDW (13.2-15.2) % Plt Count (140-440) K/mm3 Add Manual Diff Total Counted Seg Neuts % (Manual) (40.0-70.0) % Band Neutrophils % % Lymphocytes % (Manual) (13.4-35.0) % Reactive Lymphs % (Man) % Monocytes % (Manual) (0.0-7.3) % Eosinophils % (Manual) (0.0-4.3) % Basophils % (Manual) (0.0-1.8) % Metamyelocytes % % Myelocytes % % Promyelocytes % % Blast Cells % % Nucleated RBC % Seg Neutrophils # Man (1.8-7.7) K/mm3 Band Neutrophils # K/mm3 Lymphocytes # (Manual) (1.2-5.4) K/mm3 Abs React Lymphs (Man) K/mm3 Monocytes # (Manual) (0.0-0.8) K/mm3 Eosinophils # (Manual) (0.0-0.4) K/mm3 Basophils # (Manual) (0.0-0.1) K/mm3 Metamyelocytes # K/mm3 Myelocytes # K/mm3 Promyelocytes # K/mm3 Blast Cells # K/mm3 WBC Morphology Hypersegmented Neuts Hyposegmented Neuts Hypogranular Neuts Smudge Cells Toxic Granulation Toxic Vacuolation Dohle Bodies Pelger-Huet Anomaly [place] Rods Platelet Estimate Clumped Platelets Plt Clumps, EDTA Large Platelets Giant Platelets Platelet Satelliting Plt Morphology Comment RBC Morphology Dimorphic RBCs Polychromasia Hypochromasia Poikilocytosis Anisocytosis Microcytosis Macrocytosis Spherocytes Pappenheimer Bodies Sickle Cells Target Cells Tear Drop Cells Ovalocytes Helmet Cells Kraft-Soudan Bodies [place] Rings [place] Cells Bite Cells Crenated Cell Elliptocytes Acanthocytes (Spur) Rouleaux Hemoglobin C Crystals Schistocytes Malaria parasites Xavi Bodies Hem Pathologist Commnt PT (12.2-14.9) Sec. INR (0.87-1.13) APTT (24.2-36.6) Sec. ABG pH (7.350-7.450) pH Units ABG pCO2 mm Hg ABG pO2 (80.0-90.0) mm Hg ABG HCO3 (20.0-26.0) mmol/L ABG O2 Saturation (95.0-99.0) % ABG O2 Content (0.0-44) ABG Base Excess (-2.0-3.0) mmol/L ABG Hemoglobin (14.0-18.0) gm/dl ABG Carboxyhemoglobin (0.0-5.0) % ABG Methemoglobin (0.0-1.5) % Oxyhemoglobin (95.0-99.0) % FiO2 % Sodium (137-145) mmol/L Potassium (3.6-5.0) mmol/L Chloride (98-107) mmol/L Carbon Dioxide (22-30) mmol/L Anion Gap mmol/L BUN (9-20) mg/dL Creatinine (0.8-1.3) mg/dL Estimated GFR ml/min BUN/Creatinine Ratio % Glucose (75-100) mg/dL POC Glucose (70-105) mg/dL Lactic Acid (0.7-2.0) mmol/L Calcium (8.4-10.2) mg/dL Total Bilirubin (0.1-1.2) mg/dL AST (5-40) units/L ALT (7-56) units/L Alkaline Phosphatase (35-129) units/L Ammonia (25-60) umol/L Total Creatine Kinase (55-170) units/L Troponin T (0.00-0.029) ng/mL Total Protein (6.3-8.2) g/dL Albumin (3.9-5) g/dL Albumin/Globulin Ratio % TSH 0.908 (0.270-4.200) mlU/mL Urine Color Yellow (Yellow) Urine Turbidity Clear (Clear) Urine pH 7.0 (5.0-7.0) Ur Specific [place] 1.025 (1.003-1.030) Urine Protein <15 mg/dl (Negative) mg/dL Urine Glucose (UA) Negative (Negative) mg/dL Urine Ketones Negative (Negative) mg/dL Urine Blood Negative (Negative) Urine Nitrite Negative (Negative) Urine Bilirubin Negative (Negative) Urine Urobilinogen 0.0 (<2.0) mg/dL Ur Leukocyte Esterase Negative (Negative) Urine WBC (Auto) 1.0 (0.0-6.0) /HPF Urine RBC (Auto) 5.0 (0.0-6.0) /HPF Urine Mucus Few /HPF CSF Glucose mg/dL CSF Total Protein mg/dL Urine Opiates Screen Urine Methadone Screen Ur Barbiturates Screen Ur Phencyclidine Scrn Ur Amphetamines Screen U Benzodiazepines Scrn Urine Cocaine Screen U Marijuana (THC) Screen Drugs of Abuse Note Plasma/Serum Alcohol < 0.01 (0-0.07) % 09/09/21 09/09/21 09/09/21 Range/Units 17:49 19:55 Unknown WBC (4.5-11.0) K/mm3 RBC (3.65-5.03) M/mm3 Hgb (11.8-15.2) gm/dl Hct (35.5-45.6) % MCV (84-94) fl MCH (28-32) pg MCHC (32-34) % RDW (13.2-15.2) % Plt Count (140-440) K/mm3 Add Manual Diff Total Counted Seg Neuts % (Manual) (40.0-70.0) % Band Neutrophils % % Lymphocytes % (Manual) (13.4-35.0) % Reactive Lymphs % (Man) % Monocytes % (Manual) (0.0-7.3) % Eosinophils % (Manual) (0.0-4.3) % Basophils % (Manual) (0.0-1.8) % Metamyelocytes % % Myelocytes % % Promyelocytes % % Blast Cells % % Nucleated RBC % Seg Neutrophils # Man (1.8-7.7) K/mm3 Band Neutrophils # K/mm3 Lymphocytes # (Manual) (1.2-5.4) K/mm3 Abs React Lymphs (Man) K/mm3 Monocytes # (Manual) (0.0-0.8) K/mm3 Eosinophils # (Manual) (0.0-0.4) K/mm3 Basophils # (Manual) (0.0-0.1) K/mm3 Metamyelocytes # K/mm3 Myelocytes # K/mm3 Promyelocytes # K/mm3 Blast Cells # K/mm3 WBC Morphology Hypersegmented Neuts Hyposegmented Neuts Hypogranular Neuts Smudge Cells Toxic Granulation Toxic Vacuolation Dohle Bodies Pelger-Huet Anomaly [place] Rods Platelet Estimate Clumped Platelets Plt Clumps, EDTA Large Platelets Giant Platelets Platelet Satelliting Plt Morphology Comment RBC Morphology Dimorphic RBCs Polychromasia Hypochromasia Poikilocytosis Anisocytosis Microcytosis Macrocytosis Spherocytes Pappenheimer Bodies Sickle Cells Target Cells Tear Drop Cells Ovalocytes Helmet Cells Kraft-Soudan Bodies [place] Rings [place] Cells Bite Cells Crenated Cell Elliptocytes Acanthocytes (Spur) Rouleaux Hemoglobin C Crystals Schistocytes Malaria parasites Xavi Bodies Hem Pathologist Commnt PT (12.2-14.9) Sec. INR (0.87-1.13) APTT (24.2-36.6) Sec. ABG pH 7.410 (7.350-7.450) pH Units ABG pCO2 41.0 mm Hg ABG pO2 84.4 (80.0-90.0) mm Hg ABG HCO3 25.4 (20.0-26.0) mmol/L ABG O2 Saturation 96.8 (95.0-99.0) % ABG O2 Content 20.6 (0.0-44) ABG Base Excess 0.7 (-2.0-3.0) mmol/L ABG Hemoglobin 15.4 (14.0-18.0) gm/dl ABG Carboxyhemoglobin 1.2 (0.0-5.0) % ABG Methemoglobin 0.5 (0.0-1.5) % Oxyhemoglobin 95.2 (95.0-99.0) % FiO2 21 % Sodium (137-145) mmol/L Potassium (3.6-5.0) mmol/L Chloride (98-107) mmol/L Carbon Dioxide (22-30) mmol/L Anion Gap mmol/L BUN (9-20) mg/dL Creatinine (0.8-1.3) mg/dL Estimated GFR ml/min BUN/Creatinine Ratio % Glucose (75-100) mg/dL POC Glucose (70-105) mg/dL Lactic Acid (0.7-2.0) mmol/L Calcium (8.4-10.2) mg/dL Total Bilirubin (0.1-1.2) mg/dL AST (5-40) units/L ALT (7-56) units/L Alkaline Phosphatase (35-129) units/L Ammonia (25-60) umol/L Total Creatine Kinase (55-170) units/L Troponin T (0.00-0.029) ng/mL Total Protein (6.3-8.2) g/dL Albumin (3.9-5) g/dL Albumin/Globulin Ratio % TSH (0.270-4.200) mlU/mL Urine Color (Yellow) Urine Turbidity (Clear) Urine pH (5.0-7.0) Ur Specific [place] (1.003-1.030) Urine Protein (Negative) mg/dL Urine Glucose (UA) (Negative) mg/dL Urine Ketones (Negative) mg/dL Urine Blood (Negative) Urine Nitrite (Negative) Urine Bilirubin (Negative) Urine Urobilinogen (<2.0) mg/dL Ur Leukocyte Esterase (Negative) Urine WBC (Auto) (0.0-6.0) /HPF Urine RBC (Auto) (0.0-6.0) /HPF Urine Mucus /HPF CSF Glucose 194 mg/dL CSF Total Protein 31 mg/dL Urine Opiates Screen Negative Urine Methadone Screen Negative Ur Barbiturates Screen Negative Ur Phencyclidine Scrn Negative Ur Amphetamines Screen Negative U Benzodiazepines Scrn Negative Urine Cocaine Screen Negative U Marijuana (THC) Screen Negative Drugs of Abuse Note Disclamer Plasma/Serum Alcohol (0-0.07) % - EKG Data -: EKG Interpreted by Me Rate: tachycardia - EKG Data 09/09/21 22:38 Paced rhythm - Medical Decision Making On initial evaluation there is concern for bacterial infection thus blood cultures and lactic acid were obtained. Patient did receive prophylactic antibiotics at the return of blood work. Also there was no source initially for the patient's altered mental status thus a lumbar puncture was done. Patient was covered for viral and bacterial meningitis. Critical Care Time: Yes Critical care time in (mins) excluding proc time.: 35 Critical care attestation.: If time is entered above; I have spent that time in minutes in the direct care of this critically ill patient, excluding procedure time. ED Disposition Clinical Impression: Altered mental status Disposition: 09 ADMITTED INPATIENT Is pt being admited?: Yes Does the pt Need Aspirin: No Condition: Fair
--- NOTE | 2021-09-09 17:00 | Cat Scan Report ---
CT head/brain wo con INDICATION: AMS. TECHNIQUE: Routine CT head without contrast. All CT scans at this location are performed using CT dos e reduction for ALARA by means of automated exposure control. COMPARISON: Head CT on 09/13/2020 FINDINGS: Exam is limited due to motion artifact despite obtaining multiple attempts. BRAIN / INTRACRANIAL CONTENTS: No acute hemorrhage, mass effect, midline shift, or hydrocephalus. No appreciable acute large territorial or lacunar infarct. ORBITS: No significant abnormality of visualized orbits. SINUSES / MASTOIDS: No significant abnormality of visualized sinuses and mastoid air cells. ADDITIONAL FINDINGS: None. IMPRESSION: 1. Limited exam due to motion artifact without gross appreciable acute abnormality. Signer Name: Lavelle Talavera MD Signed: 09/09/2021 4:56 PM Workstation Name: [id number]
--- NOTE | 2021-09-09 17:19 | XRay Report ---
CHEST 1 VIEW 09/09/2021 4:58 PM INDICATION / CLINICAL INFORMATION: Altered Mental Status. COMPARISON: 09/13/20. FINDINGS: SUPPORT DEVICES: The position of the dual chamber left subclavian transvenous pacemaker has not ulloa ed. HEART / MEDIASTINUM: The heart size and pulmonary vasculature are normal. LUNGS / PLEURA: No significant pulmonary or pleural abnormality. No pneumothorax. ADDITIONAL FINDINGS: No significant additional findings. IMPRESSION: No acute abnormality or significant change. Signer Name: Barrington Novak MD Signed: 09/09/2021 5:15 PM Workstation Name: [id number]
[2021-09-09] MEDS ORDERED: ZIPRASIDONE MESYLATE 20 MG VIAL IM ONE ×2 (17:46→18:25)
[2021-09-09 18:27] LABS: Hematocrit 45.1 % (35.5-45.6); Hemoglobin 14.8 gm/dl (11.8-15.2); Mean Corpuscular HGB Conc 33 % (32-34); Mean Corpuscular Volume 86 fl (84-94); Platelet Count 200 K/mm3 (140-440); Red Blood Count 5.23 M/mm3 (3.65-5.03); Red Cell Distribution Width 14.9 % (13.2-15.2)
[2021-09-09 18:53] LABS: INR 0.87 (0.87-1.13)
[2021-09-09 18:54] LABS: Partial Thromboplastin Time 30.3 Sec. (24.2-36.6)
[2021-09-09 19:12] LABS: Bilirubin,Urine Negative (Negative); Blood,Urine Negative (Negative); Color,Urine Yellow (Yellow)
[2021-09-09 19:13] LABS: Protein,Urine <15 mg/dL mg/dL (Negative)
[2021-09-09] MEDS ORDERED: CEFEPIME/NS 2 GM/100 ML 2 GM/100 ML BAG IV ONE (19:29)
[2021-09-09 19:30] LABS: Mucus,Urine FEW /HPF
[2021-09-09 19:46] LABS: Amphetamine Screen,Urine Negative; Benzodiazepines Screen,Urine Negative; Cannabinoid Screen,Urine Negative; Cocaine Screen,Urine Negative; Methadone Screen,Urine Negative; Opiate Screen,Urine Negative
[2021-09-09 19:47] LABS: Alanine Aminotransferase 16 units/L (7-56); Albumin 4.2 g/dL (3.9-5); BUN/Creatinine Ratio 16; Blood Urea Nitrogen 16 mg/dL (9-20); Calcium 9.4 mg/dL (8.4-10.2); Hemolysis Index 89
[2021-09-09 20:09] LABS: ABG Base Excess 0.7 mmol/L (-2.0-3.0); ABG HCO3 25.4 mmol/L (20.0-26.0); ABG Methemoglobin 0.5 % (0.0-1.5); ABG Oxygen Saturation 96.8 % (95.0-99.0); ABG PH 7.41 pH Units (7.350-7.450); ABG PO2 84.4 mm Hg (80.0-90.0)
[2021-09-09] MEDS ORDERED: LIDOCAINE 2%/EPINEPHRINE 1:100,000 VIAL (20 ML) INFILTRATI ONE (20:50)
[2021-09-09] MEDS ORDERED: propofoL 200 MG/20 ML VIAL IV ONE (21:03)
[2021-09-09] MEDS ORDERED: SODIUM CHLORIDE 0.9% 1000 ML 1,000 ML IV ONE (21:04)
[2021-09-09 21:51] LABS: Total Cells Counted 100
[2021-09-09 21:53] LABS: Platelet Estimate Consistent w Auto
[2021-09-09] MEDS ORDERED: cefTRIAXone/NS 2 GM/100 ML 2 GM/100 ML BAG IV ONE (22:28)
[2021-09-09] MEDS ORDERED: VANCOMYCIN 1,500 MG in SODIUM CHLORIDE 0.9% 500 ML 500 ML IV ONE (22:29)
[2021-09-09 22:31] LABS: Glucose,CSF 194 mg/dL
[2021-09-09] MEDS ORDERED: VANCOMYCIN 2,000 MG in SODIUM CHLORIDE 0.9% 500 ML 500 ML IV ONE (23:00)
[2021-09-09] MEDS ORDERED: ALBUTEROL 2.5 MG/3 ML NEBU IH PRN (23:45)
[2021-09-09] MEDS ORDERED: ONDANSETRON 4 MG/2 ML INJ IV PRN (23:45)
[2021-09-09] MEDS ORDERED: MORPHINE 2 MG/1 ML INJ IV PRN (23:45)
[2021-09-09] MEDS ORDERED: VANCOMYCIN/NS 1 GM/250 ML 1 GM/250 ML BAG IV SCH (23:45)
[2021-09-09] MEDS ORDERED: ACETAMINOPHEN 325 MG TAB PO PRN (23:45)
--- NOTE | 2021-09-09 23:53 | History and Physical Report ---
History of Present Illness Date of examination: 09/09/21 Date of admission: 09/09/21 Chief complaint: Altered mental status History of present illness: 61 years old male with history of seizure and pacemaker was brought to the emergency room for altered mental status. The patient's states that he has been altered for the last 48 hours per EMS. Patient is not able to add to the history. The patient's was contacted and she states that the patient also hit his head today. She denies any alcohol or drug use On initial evaluation there is concern for bacterial infection thus blood cultures and lactic acid were obtained. Patient did receive prophylactic antibiotics at the return of blood work. Also there was no source initially for the patient's altered mental status thus a lumbar puncture was done. Patient was covered for viral and bacterial meningitis. We will also consult neurology as well as infectious disease for evaluation Past History Past Medical History: seizures, other (Pacemaker) Past Surgical History: Other (Pacemaker) Social history: no significant social history Family history: hypertension Medications and Allergies Allergies Allergy/AdvReac Type Severity Reaction Status Date / Time No Known Allergies Allergy Verified 09/13/20 04:16 Active Meds: Active Medications Acetaminophen (Acetaminophen 325 Mg Tab) 650 mg PO Q4H PRN PRN Reason: Pain MILD(1-3)/Fever >100.5/BELLE Albuterol (Albuterol 2.5 Mg/3 Ml Nebu) 2.5 mg IH Q3HRT PRN PRN Reason: Shortness Of Breath Albuterol/Ipratropium (Ipratropium/Albuterol Sulfate 3 Ml Ampul.Neb) 1 ampul IH Q6HRT JAUN Famotidine (Famotidine 20 Mg/2 Ml Inj) 20 mg IV BID JAUN Acyclovir 800 mg/ Sodium (Chloride) 116 mls @ 100 mls/hr IV Q8H JAUN; Protocol Vancomycin HCl 2,000 mg/ (Sodium Chloride) 540 mls @ 250 mls/hr IV ONCE ONE Stop: 09/10/21 01:09 Dextrose/Sodium Chloride (D5/0.45ns) 1,000 mls @ 100 mls/hr IV DIRECT JAUN Ceftriaxone Sodium (Rocephin/Ns 2 Gm/100 Ml) 2 gm in 100 mls @ 200 mls/hr IV Q12H JAUN; Protocol Vancomycin HCl (Vancomycin/Ns 1 Gm/250 Ml) 1 gm in 250 mls @ 166.667 mls/hr IV Q12H JAUN; Protocol Lorazepam (Lorazepam 2 Mg/Ml Vial) 2 mg IV COIL CONNECTOR NR Stop: 09/09/21 23:59 Last Admin: 09/09/21 18:56 Dose: 2 mg Morphine Sulfate (Morphine 2 Mg/1 Ml Inj) 2 mg IV Q4H PRN PRN Reason: Pain, Moderate (4-6) Morphine Sulfate (Morphine 4 Mg/1 Ml Inj) 4 mg IV Q4H PRN PRN Reason: Pain , Severe (7-10) Ondansetron HCl (Ondansetron 4 Mg/2 Ml Inj) 4 mg IV Q8H PRN PRN Reason: Nausea And Vomiting Sodium Chloride (Sodium Chloride 0.9% 10 Ml Flush Syringe) 10 ml IV BID JAUN Sodium Chloride (Sodium Chloride 0.9% 10 Ml Flush Syringe) 10 ml IV PRN PRN PRN Reason: LINE FLUSH Review of Systems All systems: negative Constitutional: fatigue, weakness, malaise, lethargy, other (Altered mental status) Exam - Constitutional Vitals: Temp Pulse Resp BP Pulse Ox 98.5 F 112 H 17 208/109 100 09/09/21 19:45 09/09/21 21:30 09/09/21 21:30 09/09/21 19:45 09/09/21 19:45 General appearance: Present: no acute distress, well-nourished - EENT Eyes: Present: PERRL ENT: hearing intact, clear oral mucosa - Neck Neck: Present: supple, normal ROM - Respiratory Respiratory effort: normal Respiratory: bilateral: CTA - Cardiovascular Heart Sounds: Present: S1 & S2. Absent: rub, click - Extremities Extremities: pulses symmetrical, No edema Peripheral Pulses: within normal limits - Abdominal General gastrointestinal: Present: soft, non-tender, non-distended, normal bowel sounds Male genitourinary: Present: normal - Integumentary Integumentary: Present: clear, warm, dry - Musculoskeletal Musculoskeletal: gait normal, strength equal bilaterally - Psychiatric Psychiatric: other (Patient is altered mental status) - Neurologic Neurologic: CNII-XII intact, moves all extremities, other (Patient is altered mental status) HEART Score - HEART Score Troponin: Troponin T < 0.010 ng/mL (0.00-0.029) 09/09/21 16:53 Results - Labs CBC & Chem 7: 09/09/21 16:53 09/09/21 16:53 Labs: Laboratory Last Values WBC 15.3 K/mm3 (4.5-11.0) H 09/09/21 16:53 RBC 5.23 M/mm3 (3.65-5.03) H 09/09/21 16:53 Hgb 14.8 gm/dl (11.8-15.2) 09/09/21 16:53 Hct 45.1 % (35.5-45.6) 09/09/21 16:53 MCV 86 fl (84-94) 09/09/21 16:53 MCH 28 pg (28-32) 09/09/21 16:53 MCHC 33 % (32-34) 09/09/21 16:53 RDW 14.9 % (13.2-15.2) 09/09/21 16:53 Plt Count 200 K/mm3 (140-440) 09/09/21 16:53 Add Manual Diff Complete 09/09/21 16:53 Total Counted 100 09/09/21 16:53 Seg Neuts % (Manual) 77.0 % (40.0-70.0) H 09/09/21 16:53 Band Neutrophils % 0 % 09/09/21 16:53 Lymphocytes % (Manual) 10.0 % (13.4-35.0) L 09/09/21 16:53 Reactive Lymphs % (Man) 0 % 09/09/21 16:53 Monocytes % (Manual) 7.0 % (0.0-7.3) 09/09/21 16:53 Eosinophils % (Manual) 3.0 % (0.0-4.3) 09/09/21 16:53 Basophils % (Manual) 3.0 % (0.0-1.8) H 09/09/21 16:53 Metamyelocytes % 0 % 09/09/21 16:53 Myelocytes % 0 % 09/09/21 16:53 Promyelocytes % 0 % 09/09/21 16:53 Blast Cells % 0 % 09/09/21 16:53 Nucleated RBC % Not Reportable 09/09/21 16:53 Seg Neutrophils # Man 11.8 K/mm3 (1.8-7.7) H 09/09/21 16:53 Band Neutrophils # 0.0 K/mm3 09/09/21 16:53 Lymphocytes # (Manual) 1.5 K/mm3 (1.2-5.4) 09/09/21 16:53 Abs React Lymphs (Man) 0.0 K/mm3 09/09/21 16:53 Monocytes # (Manual) 1.1 K/mm3 (0.0-0.8) H 09/09/21 16:53 Eosinophils # (Manual) 0.5 K/mm3 (0.0-0.4) H 09/09/21 16:53 Basophils # (Manual) 0.5 K/mm3 (0.0-0.1) H 09/09/21 16:53 Metamyelocytes # 0.0 K/mm3 09/09/21 16:53 Myelocytes # 0.0 K/mm3 09/09/21 16:53 Promyelocytes # 0.0 K/mm3 09/09/21 16:53 Blast Cells # 0.0 K/mm3 09/09/21 16:53 WBC Morphology Not Reportable 09/09/21 16:53 Hypersegmented Neuts Not Reportable 09/09/21 16:53 Hyposegmented Neuts Not Reportable 09/09/21 16:53 Hypogranular Neuts Not Reportable 09/09/21 16:53 Smudge Cells Not Reportable 09/09/21 16:53 Toxic Granulation Not Reportable 09/09/21 16:53 Toxic Vacuolation Not Reportable 09/09/21 16:53 Dohle Bodies Not Reportable 09/09/21 16:53 Pelger-Huet Anomaly Not Reportable 09/09/21 16:53 Libia Rods Not Reportable 09/09/21 16:53 Platelet Estimate Consistent w auto 09/09/21 16:53 Clumped Platelets Not Reportable 09/09/21 16:53 Plt Clumps, EDTA Not Reportable 09/09/21 16:53 Large Platelets Not Reportable 09/09/21 16:53 Giant Platelets Not Reportable 09/09/21 16:53 Platelet Satelliting Not Reportable 09/09/21 16:53 Plt Morphology Comment Not Reportable 09/09/21 16:53 RBC Morphology Not Reportable 09/09/21 16:53 Dimorphic RBCs Not Reportable 09/09/21 16:53 Polychromasia Not Reportable 09/09/21 16:53 Hypochromasia Not Reportable 09/09/21 16:53 Poikilocytosis Not Reportable 09/09/21 16:53 Anisocytosis Not Reportable 09/09/21 16:53 Microcytosis Not Reportable 09/09/21 16:53 Macrocytosis Not Reportable 09/09/21 16:53 Spherocytes Not Reportable 09/09/21 16:53 Pappenheimer Bodies Not Reportable 09/09/21 16:53 Sickle Cells Not Reportable 09/09/21 16:53 Target Cells Not Reportable 09/09/21 16:53 Tear Drop Cells Not Reportable 09/09/21 16:53 Ovalocytes Not Reportable 09/09/21 16:53 Helmet Cells Not Reportable 09/09/21 16:53 Kraft-Cornucopia Bodies Not Reportable 09/09/21 16:53 Mead Rings Not Reportable 09/09/21 16:53 Keller Cells Not Reportable 09/09/21 16:53 Bite Cells Not Reportable 09/09/21 16:53 Crenated Cell Not Reportable 09/09/21 16:53 Elliptocytes Not Reportable 09/09/21 16:53 Acanthocytes (Spur) Not Reportable 09/09/21 16:53 Rouleaux Not Reportable 09/09/21 16:53 Hemoglobin C Crystals Not Reportable 09/09/21 16:53 Schistocytes Not Reportable 09/09/21 16:53 Malaria parasites Not Reportable 09/09/21 16:53 Xavi Bodies Not Reportable 09/09/21 16:53 Hem Pathologist Commnt No 09/09/21 16:53 PT 12.8 Sec. (12.2-14.9) 09/09/21 16:53 INR 0.87 (0.87-1.13) 09/09/21 16:53 APTT 30.3 Sec. (24.2-36.6) 09/09/21 16:53 ABG pH 7.410 pH Units (7.350-7.450) 09/09/21 19:55 ABG pCO2 41.0 mm Hg 09/09/21 19:55 ABG pO2 84.4 mm Hg (80.0-90.0) 09/09/21 19:55 ABG HCO3 25.4 mmol/L (20.0-26.0) 09/09/21 19:55 ABG O2 Saturation 96.8 % (95.0-99.0) 09/09/21 19:55 ABG O2 Content 20.6 (0.0-44) 09/09/21 19:55 ABG Base Excess 0.7 mmol/L (-2.0-3.0) 09/09/21 19:55 ABG Hemoglobin 15.4 gm/dl (14.0-18.0) 09/09/21 19:55 ABG Carboxyhemoglobin 1.2 % (0.0-5.0) 09/09/21 19:55 ABG Methemoglobin 0.5 % (0.0-1.5) 09/09/21 19:55 Oxyhemoglobin 95.2 % (95.0-99.0) 09/09/21 19:55 FiO2 21 % 09/09/21 19:55 Sodium 133 mmol/L (137-145) L 09/09/21 16:53 Potassium 4.6 mmol/L (3.6-5.0) 09/09/21 16:53 Chloride 97.2 mmol/L (98-107) L 09/09/21 16:53 Carbon Dioxide 22 mmol/L (22-30) 09/09/21 16:53 Anion Gap 18 mmol/L 09/09/21 16:53 BUN 16 mg/dL (9-20) 09/09/21 16:53 Creatinine 1.0 mg/dL (0.8-1.3) 09/09/21 16:53 Estimated GFR > 60 ml/min 09/09/21 16:53 BUN/Creatinine Ratio 16 % 09/09/21 16:53 Glucose 423 mg/dL (75-100) H 09/09/21 16:53 POC Glucose 409 mg/dL (70-105) H 09/09/21 16:13 Lactic Acid 2.80 mmol/L (0.7-2.0) H* 09/09/21 16:53 Calcium 9.4 mg/dL (8.4-10.2) 09/09/21 16:53 Total Bilirubin 0.20 mg/dL (0.1-1.2) 09/09/21 16:53 AST 20 units/L (5-40) 09/09/21 16:53 ALT 16 units/L (7-56) 09/09/21 16:53 Alkaline Phosphatase 129 units/L (35-129) 09/09/21 16:53 Ammonia 42.0 umol/L (25-60) 09/09/21 16:53 Total Creatine Kinase 71 units/L (55-170) 09/09/21 16:53 Troponin T < 0.010 ng/mL (0.00-0.029) 09/09/21 16:53 Total Protein 7.1 g/dL (6.3-8.2) 09/09/21 16:53 Albumin 4.2 g/dL (3.9-5) 09/09/21 16:53 Albumin/Globulin Ratio 1.4 % 09/09/21 16:53 TSH 0.908 mlU/mL (0.270-4.200) 09/09/21 16:53 Urine Color Yellow (Yellow) 09/09/21 17:39 Urine Turbidity Clear (Clear) 09/09/21 17:39 Urine pH 7.0 (5.0-7.0) 09/09/21 17:39 Ur Specific [place] 1.025 (1.003-1.030) 09/09/21 17:39 Urine Protein <15 mg/dl mg/dL (Negative) 09/09/21 17:39 Urine Glucose (UA) Negative mg/dL (Negative) 09/09/21 17:39 Urine Ketones Negative mg/dL (Negative) 09/09/21 17:39 Urine Blood Negative (Negative) 09/09/21 17:39 Urine Nitrite Negative (Negative) 09/09/21 17:39 Urine Bilirubin Negative (Negative) 09/09/21 17:39 Urine Urobilinogen 0.0 mg/dL (<2.0) 09/09/21 17:39 Ur Leukocyte Esterase Negative (Negative) 09/09/21 17:39 Urine WBC (Auto) 1.0 /HPF (0.0-6.0) 09/09/21 17:39 Urine RBC (Auto) 5.0 /HPF (0.0-6.0) 09/09/21 17:39 Urine Mucus Few /HPF 09/09/21 17:39 CSF Glucose 194 mg/dL 09/09/21 Unknown CSF Total Protein 31 mg/dL 09/09/21 Unknown Urine Opiates Screen Negative 09/09/21 17:49 Urine Methadone Screen Negative 09/09/21 17:49 Ur Barbiturates Screen Negative 09/09/21 17:49 Ur Phencyclidine Scrn Negative 09/09/21 17:49 Ur Amphetamines Screen Negative 09/09/21 17:49 U Benzodiazepines Scrn Negative 09/09/21 17:49 Urine Cocaine Screen Negative 09/09/21 17:49 U Marijuana (THC) Screen Negative 09/09/21 17:49 Drugs of Abuse Note Disclamer 09/09/21 17:49 Plasma/Serum Alcohol < 0.01 % (0-0.07) 09/09/21 16:53 Microbiology: Microbiology 09/09/21 Unknown Cerebral Spinal Fluid Cryptococcal Antigen - Final 09/09/21 Unknown Cerebral Spinal Fluid CSF Culture - Preliminary 09/09/21 16:53 Peripheral/Venous Blood Culture - Preliminary Culture in Progress 09/09/21 16:53 Peripheral/Venous Blood Culture - Preliminary Culture in Progress - Imaging and Cardiology CT Scan - head: report reviewed Assessment and Plan VTE prophylaxis?: Mechanical Plan of care discussed with patient/family: Yes - Patient Problems (1) Acute encephalopathy Current Visit: No Status: Acute Plan to address problem: Admit the patient to the medical telemetry. NPO. Oxygen via nasal lundberg 3 to permit. D5 half-normal saline at the rate of 100 cc/h. Rocephin 2 g IV every 12 hours. Manual Comycin 1 g IV daily. We also put the patient on acyclovir. We do the blood culture urine culture. We will consult infectious disease as well as neurology for evaluation (2) Leukocytosis (leucocytosis) Current Visit: No Status: Acute Plan to address problem: Rocephin 2 g IV every 12 hours. Manual Comycin 1 g IV daily. We also put the patient on acyclovir. We do the blood culture urine culture. We will consult infectious disease as well as neurology for evaluation. CBC in the morning (3) Pacemaker Current Visit: Yes Status: Acute Plan to address problem: Stable. Outpatient follow-up with cardiology (4) Seizure disorder Current Visit: No Status: Acute Plan to address problem: Is stable. We continue the home medication (5) DVT prophylaxis Current Visit: No Status: Acute Plan to address problem: SCD for DVT prophylaxis because of lumbar puncture. Pepcid 20 mg IV every 12 hours for GI prophylaxis. Patient is a full code
[2021-09-10] MEDS ORDERED: VANCOMYCIN PHARMACY TO DOSE IV SCH (01:00)
[2021-09-10] MEDS ORDERED: LORazepam 2 MG/ML VIAL IV ONE (01:07)
[2021-09-10] MEDS ORDERED: LORazepam 0.5 MG TAB PO PRN (01:19)
[2021-09-10] MEDS ORDERED: diazePAM 10 MG/2 ML SYRINGE IV ONE (01:45)
[2021-09-10 01:50] LABS: Appearance,CSF Clear
[2021-09-10 01:51] LABS: Red Blood Cell,CSF 0 /mm3 (0-0); Total Cells Counted 0 /mm3; White Blood Cell,CSF 0 /mm3 (1-10)
[2021-09-10] MEDS ORDERED: IPRATROPIUM/ALBUTEROL SULFATE 3 ML AMPUL.NEB IH SCH (02:00)
[2021-09-10] MEDS: D5W/0.45% NACL 1,000 ML IV SCH ×2 (02:18→16:07)
[2021-09-10] MEDS: ACYCLOVIR 800 MG in SODIUM CHLORIDE 0.9% 100 ML IV SCH ×3 (02:19→16:07)
[2021-09-10] MEDS: MORPHINE 4 MG/1 ML INJ IV PRN ×2 (02:29→21:12)
[2021-09-10 04:30] LABS: Basophils # (Auto) 0.1 K/mm3 (0.0-0.1); Basophils % (Auto) 0.8 % (0.0-1.8); Eosinophils # (Auto) 0.1 K/mm3 (0.0-0.4); Eosinophils % (Auto) 0.5 % (0.0-4.3); Hematocrit 43.4 % (35.5-45.6); Hemoglobin 14.3 gm/dl (11.8-15.2); Lymphocytes # (Auto) 2.4 K/mm3 (1.2-5.4); Lymphocytes % (Auto) 13.2 % (13.4-35.0); Mean Corpuscular HGB Conc 33 % (32-34); Mean Corpuscular Volume 85 fl (84-94); Monocytes # (Auto) 1.3 K/mm3 (0.0-0.8); Monocytes % (Auto) 6.9 % (0.0-7.3); Platelet Count 202 K/mm3 (140-440); Red Cell Distribution Width 14.9 % (13.2-15.2)
[2021-09-10 04:52] LABS: BUN/Creatinine Ratio 16; Blood Urea Nitrogen 14 mg/dL (9-20); Calcium 8.9 mg/dL (8.4-10.2); Hemolysis Index 8
[2021-09-10] MEDS ORDERED: WATER FOR INJ Sterile (PF) 10 ML ONE (05:11)
[2021-09-10] MEDS ORDERED: ZIPRASIDONE MESYLATE 20 MG VIAL IM ONE (05:31)
[2021-09-10] MEDS ORDERED: DEXTROSE 50% IN WATER (25GM) 50 ML SYRINGE IV PRN (07:48)
[2021-09-10] MEDS: HALOPERIDOL LACTATE 5 MG/1 ML INJ IM PRN ×2 (08:01→16:07)
[2021-09-10] MEDS: FAMOTIDINE 20 MG/2 ML INJ IV SCH ×2 (09:17→21:12)
--- NOTE | 2021-09-10 10:07 | Electrocardiograph Report ---
[facility] Test Date: 2021-09-09 Test Time: 16:17:52 Pat Name: CRIS GUZMAN Department: Room: A483 1 Gender: M Housing Quality Standard Inspector: YOSSI : 1960 Requested By: DOMITILA PEGUERO Order Number: [id number] Reading MD: Sergio Benito Measurements Intervals [place] Rate: 105 P: 82 SC: 139 QRS: 269 QRSD: 145 T: 85 QT: 402 QTc: 533 Interpretive Statements Atrial-sensed ventricular-paced rhythm Compared to ECG 09/13/2020 05:03:37 No significant changes Electronically Signed On 09-10-2021 10:07:17 EDT by Sergio Benito
[2021-09-10] MEDS: cefTRIAXone/NS 2 GM/100 ML 2 GM/100 ML BAG IV SCH ×2 (10:38→21:12)
--- NOTE | 2021-09-10 12:31 | Progress Note ---
Assessment and Plan Assessment and plan: History of present illness: 61 years old male with history of seizure and pacemaker was brought to the emergency room for altered mental status. The patient's states that he has been altered for the last 48 hours per EMS. Patient is not able to add to the history. The patient's was contacted and she states that the patient also hit his head today. She denies any alcohol or drug use On initial evaluation there is concern for bacterial infection thus blood cul tures and lactic acid were obtained. Patient did receive prophylactic antibiotics at the return of blood work. Also there was no source initially for the patient's altered mental status thus a lumbar puncture was done. Patient was covered for viral and bacterial meningitis. We will also consult neurology as well as infectious disease for evaluation Hospital Course: 09/10: Continues to be agitated. Empiric antibiotics initiated on admission. cell count from CSF fluid thus far nondiagnostic. We will follow culture data. Ordered viral PCR. MRI unable to be completed due to patient's pacemaker history. We will follow infectious disease and neurology input. I will attempt to reach out to patient's today. Assessment and Plan: #Acute metabolic encephalopathy -Altered, agitated on presentation -CT brain negative, cannot perform MRI study due to pacemaker LP performed on admission, will follow studies ordered. -UDS negative, UA negative -Meningitis coverage with vancomycin IV, ceftriaxone IV, acyclovir IV -Infectious disease consultation Neurology consultation #Sepsis POA -Lactic acid 2.8, tachycardic, tachypneic, WBC. Suspect source to be neuro -UA negative for UTI, chest x-ray negative for pneumonia -blood cultures -CSF culture, results pending -Empiric antibiotic therapy as outlined above #Seizure disorder -As needed lorazepam -Currently on pregabalin 300 mg twice daily per med reconciliation #Type 2 Diabetes with Hyperglycemia - hemoglobin A1c: Unknown - home regimen: Metformin - current regimen: Moderate SSI, Lantus 10 units nightly - blood glucose goal 140-180 while inpatient - continue to monitor #Hypertension -Resume home lisinopril #History of pacemaker -Noted on chest x-ray, unclear why patient has pacemaker -Not MRI safe, MRI study canceled Disposition Plan: tele Total Time Spent with Patient (Minutes): 35 History Interval history: Patient very agitated requiring both physical and chemical restraint this morning. Very altered, not answering line of questioning this morning on encounter. Unable to recite his own name. Hospitalist Physical - Physical exam Narrative exam: Physical Exam: VITAL SIGNS: Reviewed. GENERAL: The patient appears normally developed, Vital signs as documented. Mild distress, very agitated. Requiring restraints HEAD: No signs of head trauma. EYES: Pupils are equal. Extraocular motions intact. EARS: Hearing grossly intact. MOUTH: Oropharynx is normal. NECK: No adenopathy, no JVD. CHEST: Tachypneic. Chest with clear breath sounds bilaterally. No wheezes, rales, or rhonchi. CARDIAC: Tachycardic, regular rhythm. S1 and S2, without murmurs, gallops, or rubs. VASCULAR: No Edema. Peripheral pulses normal and equal in all extremities. ABDOMEN: Soft, non tender and non distended. No rebound or guarding, and no masses palpated. Bowel Sounds normal. MUSCULOSKELETAL: Good range of motion of all major joints. Extremities without clubbing, cyanosis or edema. NEUROLOGIC EXAM: Alert, agitated, oriented x0 unable to complete full neuro assessment PSYCHIATRIC: Encephalopathic SKIN: detail exam as documented in skin assessment - Constitutional Vitals: Temp Pulse Resp BP Pulse Ox 99.8 F H 108 H 18 137/64 96 09/10/21 08:14 09/10/21 08:14 09/10/21 08:14 09/10/21 08:14 09/10/21 08:28 General appearance: Present: no acute distress, well-nourished HEART Score - HEART Score Troponin: Troponin T < 0.010 ng/mL (0.00-0.029) 09/09/21 16:53 Results - Labs CBC & Chem 7: 09/10/21 03:43 09/10/21 03:43 Labs: Laboratory Last Values WBC 18.5 K/mm3 (4.5-11.0) H 09/10/21 03:43 RBC 5.10 M/mm3 (3.65-5.03) H 09/10/21 03:43 Hgb 14.3 gm/dl (11.8-15.2) 09/10/21 03:43 Hct 43.4 % (35.5-45.6) 09/10/21 03:43 MCV 85 fl (84-94) 09/10/21 03:43 MCH 28 pg (28-32) 09/10/21 03:43 MCHC 33 % (32-34) 09/10/21 03:43 RDW 14.9 % (13.2-15.2) 09/10/21 03:43 Plt Count 202 K/mm3 (140-440) 09/10/21 03:43 Lymph % (Auto) 13.2 % (13.4-35.0) L 09/10/21 03:43 [place] % (Auto) 6.9 % (0.0-7.3) 09/10/21 03:43 Eos % (Auto) 0.5 % (0.0-4.3) 09/10/21 03:43 Baso % (Auto) 0.8 % (0.0-1.8) 09/10/21 03:43 Lymph # (Auto) 2.4 K/mm3 (1.2-5.4) 09/10/21 03:43 [place] # (Auto) 1.3 K/mm3 (0.0-0.8) H 09/10/21 03:43 Eos # (Auto) 0.1 K/mm3 (0.0-0.4) 09/10/21 03:43 Baso # (Auto) 0.1 K/mm3 (0.0-0.1) 09/10/21 03:43 Add Manual Diff Complete 09/09/21 16:53 Total Counted 100 09/09/21 16:53 Seg Neutrophils % 78.6 % (40.0-70.0) H 09/10/21 03:43 Seg Neuts % (Manual) 77.0 % (40.0-70.0) H 09/09/21 16:53 Band Neutrophils % 0 % 09/09/21 16:53 Lymphocytes % (Manual) 10.0 % (13.4-35.0) L 09/09/21 16:53 Reactive Lymphs % (Man) 0 % 09/09/21 16:53 Monocytes % (Manual) 7.0 % (0.0-7.3) 09/09/21 16:53 Eosinophils % (Manual) 3.0 % (0.0-4.3) 09/09/21 16:53 Basophils % (Manual) 3.0 % (0.0-1.8) H 09/09/21 16:53 Metamyelocytes % 0 % 09/09/21 16:53 Myelocytes % 0 % 09/09/21 16:53 Promyelocytes % 0 % 09/09/21 16:53 Blast Cells % 0 % 09/09/21 16:53 Nucleated RBC % Not Reportable 09/09/21 16:53 Seg Neutrophils # 14.6 K/mm3 (1.8-7.7) H 09/10/21 03:43 Seg Neutrophils # Man 11.8 K/mm3 (1.8-7.7) H 09/09/21 16:53 Band Neutrophils # 0.0 K/mm3 09/09/21 16:53 Lymphocytes # (Manual) 1.5 K/mm3 (1.2-5.4) 09/09/21 16:53 Abs React Lymphs (Man) 0.0 K/mm3 09/09/21 16:53 Monocytes # (Manual) 1.1 K/mm3 (0.0-0.8) H 09/09/21 16:53 Eosinophils # (Manual) 0.5 K/mm3 (0.0-0.4) H 09/09/21 16:53 Basophils # (Manual) 0.5 K/mm3 (0.0-0.1) H 09/09/21 16:53 Metamyelocytes # 0.0 K/mm3 09/09/21 16:53 Myelocytes # 0.0 K/mm3 09/09/21 16:53 Promyelocytes # 0.0 K/mm3 09/09/21 16:53 Blast Cells # 0.0 K/mm3 09/09/21 16:53 WBC Morphology Not Reportable 09/09/21 16:53 Hypersegmented Neuts Not Reportable 09/09/21 16:53 Hyposegmented Neuts Not Reportable 09/09/21 16:53 Hypogranular Neuts Not Reportable 09/09/21 16:53 Smudge Cells Not Reportable 09/09/21 16:53 Toxic Granulation Not Reportable 09/09/21 16:53 Toxic Vacuolation Not Reportable 09/09/21 16:53 Dohle Bodies Not Reportable 09/09/21 16:53 Pelger-Huet Anomaly Not Reportable 09/09/21 16:53 Libia Rods Not Reportable 09/09/21 16:53 Platelet Estimate Consistent w auto 09/09/21 16:53 Clumped Platelets Not Reportable 09/09/21 16:53 Plt Clumps, EDTA Not Reportable 09/09/21 16:53 Large Platelets Not Reportable 09/09/21 16:53 Giant Platelets Not Reportable 09/09/21 16:53 Platelet Satelliting Not Reportable 09/09/21 16:53 Plt Morphology Comment Not Reportable 09/09/21 16:53 RBC Morphology Not Reportable 09/09/21 16:53 Dimorphic RBCs Not Reportable 09/09/21 16:53 Polychromasia Not Reportable 09/09/21 16:53 Hypochromasia Not Reportable 09/09/21 16:53 Poikilocytosis Not Reportable 09/09/21 16:53 Anisocytosis Not Reportable 09/09/21 16:53 Microcytosis Not Reportable 09/09/21 16:53 Macrocytosis Not Reportable 09/09/21 16:53 Spherocytes Not Reportable 09/09/21 16:53 Pappenheimer Bodies Not Reportable 09/09/21 16:53 Sickle Cells Not Reportable 09/09/21 16:53 Target Cells Not Reportable 09/09/21 16:53 Tear Drop Cells Not Reportable 09/09/21 16:53 Ovalocytes Not Reportable 09/09/21 16:53 Helmet Cells Not Reportable 09/09/21 16:53 [place] Bodies Not Reportable 09/09/21 16:53 [place] Rings Not Reportable 09/09/21 16:53 Goehner Cells Not Reportable 09/09/21 16:53 Bite Cells Not Reportable 09/09/21 16:53 Crenated Cell Not Reportable 09/09/21 16:53 Elliptocytes Not Reportable 09/09/21 16:53 Acanthocytes (Spur) Not Reportable 09/09/21 16:53 Rouleaux Not Reportable 09/09/21 16:53 Hemoglobin C Crystals Not Reportable 09/09/21 16:53 Schistocytes Not Reportable 09/09/21 16:53 Malaria parasites Not Reportable 09/09/21 16:53 Xavi Bodies Not Reportable 09/09/21 16:53 Hem Pathologist Commnt No 09/09/21 16:53 PT 12.8 Sec. (12.2-14.9) 09/09/21 16:53 INR 0.87 (0.87-1.13) 09/09/21 16:53 APTT 30.3 Sec. (24.2-36.6) 09/09/21 16:53 ABG pH 7.410 pH Units (7.350-7.450) 09/09/21 19:55 ABG pCO2 41.0 mm Hg 09/09/21 19:55 ABG pO2 84.4 mm Hg (80.0-90.0) 09/09/21 19:55 ABG HCO3 25.4 mmol/L (20.0-26.0) 09/09/21 19:55 ABG O2 Saturation 96.8 % (95.0-99.0) 09/09/21 19:55 ABG O2 Content 20.6 (0.0-44) 09/09/21 19:55 ABG Base Excess 0.7 mmol/L (-2.0-3.0) 09/09/21 19:55 ABG Hemoglobin 15.4 gm/dl (14.0-18.0) 09/09/21 19:55 ABG Carboxyhemoglobin 1.2 % (0.0-5.0) 09/09/21 19:55 ABG Methemoglobin 0.5 % (0.0-1.5) 09/09/21 19:55 Oxyhemoglobin 95.2 % (95.0-99.0) 09/09/21 19:55 FiO2 21 % 09/09/21 19:55 Sodium 142 mmol/L (137-145) D 09/10/21 03:43 Potassium 4.0 mmol/L (3.6-5.0) 09/10/21 03:43 Chloride 106.5 mmol/L (98-107) 09/10/21 03:43 Carbon Dioxide 21 mmol/L (22-30) L 09/10/21 03:43 Anion Gap 19 mmol/L 09/10/21 03:43 BUN 14 mg/dL (9-20) 09/10/21 03:43 Creatinine 0.9 mg/dL (0.8-1.3) 09/10/21 03:43 Estimated GFR > 60 ml/min 09/10/21 03:43 BUN/Creatinine Ratio 16 % 09/10/21 03:43 Glucose 315 mg/dL (75-100) H 09/10/21 03:43 POC Glucose 200 mg/dL (70-105) H 09/10/21 12:05 Lactic Acid 2.80 mmol/L (0.7-2.0) H* 09/09/21 16:53 Calcium 8.9 mg/dL (8.4-10.2) 09/10/21 03:43 Total Bilirubin 0.20 mg/dL (0.1-1.2) 09/09/21 16:53 AST 20 units/L (5-40) 09/09/21 16:53 ALT 16 units/L (7-56) 09/09/21 16:53 Alkaline Phosphatase 129 units/L (35-129) 09/09/21 16:53 Ammonia 42.0 umol/L (25-60) 09/09/21 16:53 Lactate Dehydrogenase 259 units/L (91-180) H 09/10/21 03:43 Total Creatine Kinase 71 units/L (55-170) 09/09/21 16:53 Troponin T < 0.010 ng/mL (0.00-0.029) 09/09/21 16:53 Total Protein 7.1 g/dL (6.3-8.2) 09/09/21 16:53 Albumin 4.2 g/dL (3.9-5) 09/09/21 16:53 Albumin/Globulin Ratio 1.4 % 09/09/21 16:53 TSH 0.908 mlU/mL (0.270-4.200) 09/09/21 16:53 Urine Color Yellow (Yellow) 09/09/21 17:39 Urine Turbidity Clear (Clear) 09/09/21 17:39 Urine pH 7.0 (5.0-7.0) 09/09/21 17:39 Ur Specific [place] 1.025 (1.003-1.030) 09/09/21 17:39 Urine Protein <15 mg/dl mg/dL (Negative) 09/09/21 17:39 Urine Glucose (UA) Negative mg/dL (Negative) 09/09/21 17:39 Urine Ketones Negative mg/dL (Negative) 09/09/21 17:39 Urine Blood Negative (Negative) 09/09/21 17:39 Urine Nitrite Negative (Negative) 09/09/21 17:39 Urine Bilirubin Negative (Negative) 09/09/21 17:39 Urine Urobilinogen 0.0 mg/dL (<2.0) 09/09/21 17:39 Ur Leukocyte Esterase Negative (Negative) 09/09/21 17:39 Urine WBC (Auto) 1.0 /HPF (0.0-6.0) 09/09/21 17:39 Urine RBC (Auto) 5.0 /HPF (0.0-6.0) 09/09/21 17:39 Urine Mucus Few /HPF 09/09/21 17:39 CSF Appearance Clear 09/09/21 Unknown CSF Color Colorless 09/09/21 Unknown CSF WBC 0 /mm3 (1-10) 09/09/21 Unknown CSF RBC 0 /mm3 (0-0) 09/09/21 Unknown CSF Seg Neutrophils Not Reportable 09/09/21 Unknown CSF Lymphocytes % Not Reportable 09/09/21 Unknown CSF Reactive Lymphs Not Reportable 09/09/21 Unknown CSF Monocytes % Not Reportable 09/09/21 Unknown CSF Eosinophils % Not Reportable 09/09/21 Unknown CSF Basophils Not Reportable 09/09/21 Unknown CSF Pathologist Review C 09/09/21 Unknown CSF Glucose 194 mg/dL 09/09/21 Unknown CSF Total Protein 31 mg/dL 09/09/21 Unknown Urine Opiates Screen Negative 09/09/21 17:49 Urine Methadone Screen Negative 09/09/21 17:49 Ur Barbiturates Screen Negative 09/09/21 17:49 Ur Phencyclidine Scrn Negative 09/09/21 17:49 Ur Amphetamines Screen Negative 09/09/21 17:49 U Benzodiazepines Scrn Negative 09/09/21 17:49 Urine Cocaine Screen Negative 09/09/21 17:49 U Marijuana (THC) Screen Negative 09/09/21 17:49 Drugs of Abuse Note Disclamer 09/09/21 17:49 Plasma/Serum Alcohol < 0.01 % (0-0.07) 09/09/21 16:53 Microbiology: Microbiology 09/09/21 Unknown Cerebral Spinal Fluid Cryptococcal Antigen - Final 09/09/21 Unknown Cerebral Spinal Fluid CSF Culture - Preliminary 09/09/21 16:53 Peripheral/Venous Blood Culture - Preliminary Culture in Progress 09/09/21 16:53 Peripheral/Venous Blood Culture - Preliminary Culture in Progress Vega/IV: Voiding Method Indwelling Catheter Active Medications - Current Medications Current Medications: Generic Name Dose Route Start Last Admin Trade Name Freq PRN Reason Stop Dose Admin Acetaminophen 650 mg 09/09/21 23:45 Acetaminophen 325 Mg Tab PO Q4H PRN Pain MILD(1-3)/Fever >100.5/BELLE Albuterol 2.5 mg 09/09/21 23:45 Albuterol 2.5 Mg/3 Ml Nebu IH Q3HRT PRN Shortness Of Breath Dextrose 50 ml 09/10/21 07:48 Dextrose 50% In Water (25gm) 50 Ml Syringe IV Q30MIN PRN Hypoglycemia Protocol Famotidine 20 mg 09/10/21 10:00 09/10/21 09:17 Famotidine 20 Mg/2 Ml Inj IV 20 mg BID JAUN Administration Haloperidol Lactate 5 mg 09/10/21 07:43 09/10/21 08:01 Haloperidol Lactate 5 Mg/1 Ml Inj IM 5 mg Q6H PRN Administration Agitation Acyclovir 800 mg/ Sodium 116 mls @ 100 mls/hr 09/10/21 00:00 09/10/21 09:17 Chloride IV 100 mls/hr Q8H JAUN Administration Protocol Dextrose/Sodium Chloride 1,000 mls @ 100 mls/hr 09/09/21 23:45 09/10/21 02:18 D5/0.45ns IV 100 mls/hr DIRECT JAUN Administration Ceftriaxone Sodium 2 gm in 100 mls @ 200 mls/hr 09/10/21 10:00 09/10/21 10:38 Rocephin/Ns 2 Gm/100 Ml IV 200 mls/hr Q12HR JAUN Administration Protocol Vancomycin HCl 1,500 mg/ 530 mls @ 333.333 mls/hr 09/10/21 12:00 Sodium Chloride IV Q12H JAUN Insulin Glargine 10 units 09/10/21 22:00 Insulin Glargine 100 Units/Ml SUB-Q QHS JAUN Insulin Human Lispro 0 unit 09/10/21 11:30 Insulin Lispro 100 Unit/Ml SUB-Q ACHS JAUN Protocol Lorazepam 0.5 mg 09/10/21 01:19 Lorazepam 0.5 Mg Tab PO Q6H PRN Agitation Morphine Sulfate 2 mg 09/09/21 23:45 Morphine 2 Mg/1 Ml Inj IV Q4H PRN Pain, Moderate (4-6) Morphine Sulfate 4 mg 09/09/21 23:45 09/10/21 02:29 Morphine 4 Mg/1 Ml Inj IV 4 mg Q4H PRN Administration Pain , Severe (7-10) Ondansetron HCl 4 mg 09/09/21 23:45 Ondansetron 4 Mg/2 Ml Inj IV Q8H PRN Nausea And Vomiting Sodium Chloride 10 ml 09/10/21 10:00 09/10/21 09:18 Sodium Chloride 0.9% 10 Ml Flush Syringe IV 10 ml BID JAUN Administration Sodium Chloride 10 ml 09/09/21 23:45 Sodium Chloride 0.9% 10 Ml Flush Syringe IV PRN PRN LINE FLUSH
[2021-09-10] MEDS: LORazepam 2 MG/ML VIAL IV PRN ×2 (12:34→18:20)
[2021-09-10] MEDS: INSULIN LISPRO 100 UNIT/ML SUB-Q SCH ×3 (12:36→22:29)
[2021-09-10] MEDS: VANCOMYCIN 1,500 MG in SODIUM CHLORIDE 0.9% 500 ML 500 ML IV SCH (12:36)
[2021-09-10] MEDS: levETIRAcetam 500 MG in DEXTROSE 5% IN WATER 100 ML IV SCH (18:16)
[2021-09-11] MEDS ORDERED: WATER FOR INJ Sterile (PF) 10 ML IM ONE (00:03)
[2021-09-11] MEDS ORDERED: ZIPRASIDONE MESYLATE 20 MG VIAL IM ONE (00:05)
[2021-09-11] MEDS: VANCOMYCIN 1,500 MG in SODIUM CHLORIDE 0.9% 500 ML 500 ML IV SCH ×3 (00:46→23:49)
[2021-09-11] MEDS: INSULIN GLARGINE 100 UNITS/ML SUB-Q SCH ×2 (02:23→21:41)
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
[2021-09-11] MEDS: FAMOTIDINE 20 MG/2 ML INJ IV SCH ×2 (09:05→21:30)
[2021-09-11] MEDS: cefTRIAXone/NS 2 GM/100 ML 2 GM/100 ML BAG IV SCH ×2 (09:05→21:31)
[2021-09-11] MEDS: LISINOPRIL 20 MG TAB PO SCH (09:05)
[2021-09-11] MEDS: levETIRAcetam 500 MG in DEXTROSE 5% IN WATER 100 ML IV SCH (09:13)
[2021-09-11] MEDS: INSULIN LISPRO 100 UNIT/ML SUB-Q SCH ×4 (09:14→21:41)
[2021-09-11] MEDS: ACYCLOVIR 800 MG in SODIUM CHLORIDE 0.9% 100 ML IV SCH ×4 (09:33→23:49)
[2021-09-11] MEDS: levETIRAcetam 1,500 MG in DEXTROSE 5% IN WATER 100 ML IV SCH ×2 (09:36→21:43)
[2021-09-11] MEDS ORDERED: NICOTINE 14 MG/24 HR PATCH TD ONE (15:09)
--- NOTE | 2021-09-11 17:00 | Consultation ---
History of Present Illness - Reason for Consult Consult date: 09/11/21 - History of Present Illness 61-year-old man past medical history seizures and pacemaker in place brought to the hospital due to altered mental status. Per the patient's he had been altered 48 hours prior to admission. He reportedly hit his head on the day symptoms began. There was concern for possible meningitis, as such a lumbar puncture was performed. Lumbar puncture is negative. Afebrile, tachycardic. White count elevated at 18.5. All cultures negative so far. Currently on acyclovir, ceftriaxone, vancomycin Imaging personally reviewed: Chest x-ray: No acute abnormality Review of Systems: Bold if positive, otherwise negative General: fevers, chills, rigors HEENT: visual disturbance, diplopia, eye pain Respiratory: cough, sputum, hemoptysis, shortness of breath Cardiovascular: chest pain, syncope Gastrointestinal: nausea, vomiting, diarrhea, abdominal pain Genitourinary: dysuria, hematuria, flank pain Musculoskeletal: neck pain, back pain, joint pain, edema Neurologic: headaches, seizures Hematologic: easy bruising or bleeding Endocrine: night sweats, acute weight loss Skin: rash, jaundice, redness Psychiatric: suicidal, homicidal ideation Past History Past Medical History: seizures, other (Pacemaker) Past Surgical History: Other (Pacemaker) Social history: no significant social history Family history: hypertension Medications and Allergies Allergies Allergy/AdvReac Type Severity Reaction Status Date / Time No Known Allergies Allergy Verified 09/11/21 13:44 Home Medications Medication Instructions Recorded Confirmed Last Taken Type AtorvaSTATin [Lipitor] 40 mg PO DAILY 09/11/21 09/11/21 Unknown History Pregabalin [Lyrica] 300 mg PO BID 09/11/21 09/11/21 Unknown History lisinopriL [Lisinopril] 20 mg PO DAILY 09/11/21 09/11/21 Unknown History metFORMIN [Glucophage] 500 mg PO BID 09/11/21 09/11/21 Unknown History Active Meds: Active Medications Acetaminophen (Acetaminophen 325 Mg Tab) 650 mg PO Q4H PRN PRN Reason: Pain MILD(1-3)/Fever >100.5/BELLE Albuterol (Albuterol 2.5 Mg/3 Ml Nebu) 2.5 mg IH Q3HRT PRN PRN Reason: Shortness Of Breath Dextrose (Dextrose 50% In Water (25gm) 50 Ml Syringe) 50 ml IV Q30MIN PRN; Protocol PRN Reason: Hypoglycemia Famotidine (Famotidine 20 Mg/2 Ml Inj) 20 mg IV BID [facility] Last Admin: 09/11/21 09:05 Dose: 20 mg Haloperidol Lactate (Haloperidol Lactate 5 Mg/1 Ml Inj) 5 mg IM Q6H PRN PRN Reason: Agitation Last Admin: 09/10/21 16:07 Dose: 5 mg Acyclovir 800 mg/ Sodium (Chloride) 116 mls @ 100 mls/hr IV Q8H [facility]; Protocol Last Admin: 09/11/21 16:05 Dose: 100 mls/hr Ceftriaxone Sodium (Rocephin/Ns 2 Gm/100 Ml) 2 gm in 100 mls @ 200 mls/hr IV Q12HR [facility]; Protocol Last Infusion: 09/11/21 09:35 Dose: Infused Vancomycin HCl 1,500 mg/ (Sodium Chloride) 530 mls @ 333.333 mls/hr IV Q12H [facility] Last Admin: 09/11/21 14:13 Dose: 333.333 mls/hr Levetiracetam 1,500 mg/ (Dextrose) 115 mls @ 400 mls/hr IV Q12HR [facility] Last Infusion: 09/11/21 09:54 Dose: Infused Insulin Glargine (Insulin Glargine 100 Units/Ml) 10 units SUB-Q QHS [facility] Last Admin: 09/11/21 02:23 Dose: Not Given Insulin Human Lispro (Insulin Lispro 100 Unit/Ml) 0 unit SUB-Q ACHS [facility]; Protocol Last Admin: 09/11/21 12:52 Dose: 2 unit Lisinopril (Lisinopril 20 Mg Tab) 20 mg PO QDAY [facility] Last Admin: 09/11/21 09:05 Dose: 20 mg Lorazepam (Lorazepam 0.5 Mg Tab) 0.5 mg PO Q6H PRN PRN Reason: Agitation Lorazepam (Lorazepam 2 Mg/Ml Vial) 2 mg IV Q4H PRN PRN Reason: Agitation Last Admin: 09/10/21 18:20 Dose: 2 mg Morphine Sulfate (Morphine 2 Mg/1 Ml Inj) 2 mg IV Q4H PRN PRN Reason: Pain, Moderate (4-6) Morphine Sulfate (Morphine 4 Mg/1 Ml Inj) 4 mg IV Q4H PRN PRN Reason: Pain , Severe (7-10) Last Admin: 09/10/21 21:12 Dose: 4 mg Ondansetron HCl (Ondansetron 4 Mg/2 Ml Inj) 4 mg IV Q8H PRN PRN Reason: Nausea And Vomiting Pregabalin (Pregabalin 75 Mg Cap) 300 mg PO BID JAUN Sodium Chloride (Sodium Chloride 0.9% 10 Ml Flush Syringe) 10 ml IV BID JAUN Last Admin: 09/11/21 09:05 Dose: 10 ml Sodium Chloride (Sodium Chloride 0.9% 10 Ml Flush Syringe) 10 ml IV PRN PRN PRN Reason: LINE FLUSH Physical Examination - Physical Exam Narrative exam: Physical Exam: Constitutional: Alert, cooperative. No acute distress Head, Ears, Nose: Normocephalic, atraumatic. External ears, nose normal Eyes: Conjunctivae/corneas clear. No icterus. No ptosis. Neck: Supple, no meningeal signs Oral: dentition fair, no thrush Cardiovascular: S1, S2 normal. Respiratory: Good air entry, clear to auscultation bilaterally GI: Soft, non-tender; bowel sounds normal. No peritoneal signs. Musculoskeletal: No pedal edema, no cyanosis. Skin: No rash or abscess Hem/Lymphatic: No palpable cervical or supraclavicular nodes. No lymphangitis Psych: Mood ok. Affect normal Neurological: Awake, alert, oriented. No gross abnormality - Constitutional Vitals: Vital Signs Temp Pulse Resp BP Pulse Ox 97.9 F 94 H 18 113/71 95 09/11/21 12:02 09/11/21 12:02 09/11/21 12:02 09/11/21 12:02 09/11/21 12:02 Temperature -Last 24 Hours Temperature 97.9 F Temperature 99.0 F Temperature 98.7 F Temperature 98.3 F Temperature 97.9 F Results - Labs CBC & Chem 7: 09/10/21 03:43 09/10/21 03:43 Labs: Abnormal lab results 09/10/21 09/10/21 09/11/21 Range/Units 16:58 22:09 07:51 POC Glucose 187 H 198 H 252 H (70-105) mg/dL 09/11/21 Range/Units 12:01 POC Glucose 184 H (70-105) mg/dL Assessment and Plan Cultures: Blood culture no growth so far CSF culture no growth so far A/P: 61-year-old man past medical history seizures now with #Acute encephalopathy: Unclear etiology, possibly postictal. CSF with 0 cells, doubt any acute infection. Awaiting HSV PCR, however with 0 cells so I doubt this is the case. #Leukocytosis: May be reactive Recs: -Stopped antibiotics, acyclovir -Trend white count Thank you for the consult, we will continue to follow. Christel De La Garza MD [facility], [place] [facility] O: [phone] F: [phone]
[2021-09-11] MEDS: PREGABALIN 75 MG CAP PO SCH (21:30)
[2021-09-12 05:56] LABS: BUN/Creatinine Ratio 19; Blood Urea Nitrogen 15 mg/dL (9-20); Calcium 8.7 mg/dL (8.4-10.2); Hemolysis Index 3
[2021-09-12] MEDS: INSULIN LISPRO 100 UNIT/ML SUB-Q SCH ×3 (08:30→16:14)
[2021-09-12] MEDS: ACYCLOVIR 800 MG in SODIUM CHLORIDE 0.9% 100 ML IV SCH (09:27)
[2021-09-12] MEDS: LISINOPRIL 20 MG TAB PO SCH (09:29)
[2021-09-12] MEDS: FAMOTIDINE 20 MG/2 ML INJ IV SCH (09:29)
[2021-09-12] MEDS: PREGABALIN 75 MG CAP PO SCH (09:29)
[2021-09-12] MEDS: levETIRAcetam 1,500 MG in DEXTROSE 5% IN WATER 100 ML IV SCH (09:33)
[2021-09-12] MEDS ORDERED: POTASSIUM CHLORIDE ER 20 MEQ TAB PO ONE (09:43)
[2021-09-12] MEDS ORDERED: INSULIN REGULAR, HUMAN 100 UNITS/1 ML SUB-Q ONE (09:43)
[2021-09-12] MEDS ORDERED: INSULIN GLARGINE 100 UNITS/ML SUB-Q SCH (09:46)
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
[2021-09-12] MEDS ORDERED: NICOTINE 14 MG/24 HR PATCH TD SCH (14:00)
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
[2021-09-12 17:37] VITALS: BP 105/61
[2021-09-12] MEDS ORDERED: levETIRAcetam 500 MG TAB PO SCH (22:00)
== END 2021-09-12 17:45 | disposition home or self-care (01) | DRG 72 ==
LOC: ED 15:45 → 4A 23:45
PROVIDERS: ADMIT Hospitalist; ATTEND Student in an Organized Health Care Education/Training Program
PROC: 4A033R1 Measurement of Arterial Saturation, Peripheral, Percutaneous Approach (ICD-10-PCS; principal; 2021-09-09)
PROC: 009U3ZX Drainage of Spinal Canal, Percutaneous Approach, Diagnostic (ICD-10-PCS; 2021-09-09)
DX: G93.41 Metabolic encephalopathy (principal); G40.909 Epilepsy, unspecified, not intractable, without status epilepticus; E11.65 Type 2 diabetes mellitus with hyperglycemia; Z95.0 Presence of cardiac pacemaker; I10 Essential (primary) hypertension; Z82.49 Family history of ischemic heart disease and other diseases of the circulatory system
CPT/HCPCS: 36415; 70450; 71045; 80048; 80053; 80307; 80320; 81001; 82140; 82550; 82803; 82947; 82962; 83615; 84160; 84443; 84484; 85025; 85610; 85730; 86403; 86592; 87040; 87116; 89051; 93005; 94640; 95819; 99406; G0378; J3490; J7060; J7070; Q9967; G0480; J0133; J0692; J0696; J1630; J1815; J1953; J2060; J2270; J2704; J3360; J3370; J3486; J7030; J7040